=== PATIENT | female | born 1950 | race Caucasian/White ===

== ENCOUNTER 2018-07-19 12:38 | Outpatient (REF) | payer MEDICARE, SELFPAY ==
[2018-07-19 20:40] LABS: HCT 41.3 % (36.0-46.0); HGB 14.1 g/dL (12.0-15.5); Mean Corp. HGB Concentration 34.1 g/dL (32.0-36.0); Mean Corpuscular Hemoglobin 32.9 pg (27.0-33.0); Mean Corpuscular Volume 96.3 fL (80-95); Mean Platelet Volume 9.9 fL (8.0-11.0); Platelet Count 252 x1000/uL (130-400); RBC 4.29 m/cumm (4.00-5.20); RBC Distribution Width 13.8 % (11.7-14.6); White Blood Cell Count 6.97 k/cumm (4.4-10.8)
[2018-07-19 20:55] LABS: ALT 24 U/L (12-78); AST 14 U/L (15-37); Albumin 2.5 g/dL (3.4-5.0); Alkaline Phosphatase 99 U/L (46-116); Anion Gap 10.9 mmol/L (3-11); BUN 21 mg/dL (7-18); Bilirubin, Total 0.3 mg/dL (0.2-1.0); CO2 26.1 mmol/L (21.0-32.0); CREATININE 1.36 mg/dL (0.55-1.02); Calcium 9.2 mg/dL (8.5-10.1); Chloride 103 mmol/L (98-107); Estimated GFR 38.78 (mL/min/1.73m2); Glucose 95 mg/dL (70-100); Lipase 94 U/L (73-393); Sodium 140 mmol/L (136-145); Total Protein 6.7 g/dL (6.4-8.2)
== END 2018-07-19 12:58 ==
LOC: NCHCN 12:38
PROVIDERS: PCP Internal Medicine; Visit Provider Internal Medicine
DX: R11.0 Nausea (principal); R10.9 Unspecified abdominal pain
CPT/HCPCS: 80053; 83690; 85027

== ENCOUNTER 2018-08-21 13:48 | Outpatient (REF) | payer MEDICARE, SELFPAY ==
[2018-08-24 20:04] LABS: Metanephrines, U 86 mcg/24 h; Normetanephrine, U 491 mcg/24 h; Total Metanephrines, U 577 mcg/24 h; Urine Volume 1175 mL
[2018-08-25 14:07] LABS: Urine Volume 1175 mL
== END 2018-08-21 14:08 ==
LOC: NCHCN 13:48
PROVIDERS: PCP Internal Medicine; Visit Provider Internal Medicine
DX: E27.8 Other specified disorders of adrenal gland (principal)
CPT/HCPCS: 82533; 81050; 82384; 83835

== ENCOUNTER 2018-09-25 10:53 | Outpatient (REF) | payer MEDICARE, SELFPAY ==
[2018-09-25 13:08] LABS: HCT 43.7 % (36.0-46.0); HGB 14.5 g/dL (12.0-15.5); Mean Corp. HGB Concentration 33.2 g/dL (32.0-36.0); Mean Corpuscular Hemoglobin 32.5 pg (27.0-33.0); Mean Platelet Volume 10.1 fL (8.0-11.0); Platelet Count 239 x1000/uL (130-400); RBC 4.46 m/cumm (4.00-5.20); RBC Distribution Width 13.8 % (11.7-14.6); White Blood Cell Count 7.48 k/cumm (4.4-10.8)
[2018-09-25 13:26] LABS: Anion Gap 10.2 mmol/L (3-11); BUN 19 mg/dL (7-18); CO2 27.8 mmol/L (21.0-32.0); CREATININE 1.42 mg/dL (0.55-1.02); Calcium 8.8 mg/dL (8.5-10.1); Chloride 104 mmol/L (98-107); Ferritin 77 ng/mL (8-388); Glucose 114 mg/dL (70-100); Magnesium 1.9 mg/dL (1.8-2.4); Potassium 3.8 mmol/L (3.5-5.1); Sodium 142 mmol/L (136-145); TSH (W/Ref FT4) 1.13 uIU/mL (0.36-3.74)
== END 2018-09-25 11:13 ==
LOC: NCHCN 10:53
PROVIDERS: PCP Internal Medicine; Visit Provider Nurse Practitioner Family
DX: R25.2 Cramp and spasm (principal); N18.9 Chronic kidney disease, unspecified
CPT/HCPCS: 80048; 85027; 82728; 83735; 84443

== ENCOUNTER 2019-07-01 01:12 | Outpatient (CLI) | payer MEDICARE, SELFPAY ==
--- NOTE | 2019-07-01 | DI.RAD_ITS ---
EXAM: XR HIP LT COMPLETE AP PELVIS CLINICAL HISTORY: LT HIP PAIN, M25.552. TECHNIQUE: 2D digital imaging was performed. COMPARISON: No exams were available for comparison FINDINGS: BONES: No acute fracture is present. No bony destructive lesion is seen. JOINTS: There is moderate joint space narrowing in the left hip. There is a small osteophyte of the left femoral head. There is mild narrowing of the right hip joint. Mild degenerative changes are se en in the lower lumbar spine and the sacroiliac joints. SOFT TISSUE: Vascular calcifications are present. IMPRESSION: Mild to moderate degenerative changes of the left hip. DATA REPOSITORY: RADIATION DOSE DELIVERED:
== END 2019-07-01 01:32 ==
PROVIDERS: PCP Internal Medicine; Visit Provider Internal Medicine
DX: M25.552 Pain in left hip (principal); M16.12 Unilateral primary osteoarthritis, left hip
CPT/HCPCS: 73502

== ENCOUNTER → 2019-07-23 09:13 | Outpatient (BNVA) | payer MEDICARE, SELFPAY | PROVIDERS: PCP Internal Medicine; Referring Provider Internal Medicine; Visit Provider Orthopaedic Surgery | DX: M16.12 Unilateral primary osteoarthritis, left hip (principal) | CPT/HCPCS: 99203 ==

== ENCOUNTER 2019-08-15 13:00 | Outpatient (CLI) | payer MEDICARE, SELFPAY | END 2019-08-15 13:20 | PROVIDERS: PCP Internal Medicine; Visit Provider Orthopaedic Surgery | DX: Z01.818 Encounter for other preprocedural examination (principal); M16.12 Unilateral primary osteoarthritis, left hip; I10 Essential (primary) hypertension ==

== ENCOUNTER 2019-08-16 07:37 | Outpatient (CLI) | payer MEDICARE, SELFPAY ==
[2019-08-16 20:27] LABS: COVID-19 RT-PCR UVMMC Result Negative (Negative)
== END 2019-08-16 07:57 ==
PROVIDERS: PCP Internal Medicine; Visit Provider Orthopaedic Surgery
DX: Z01.818 Encounter for other preprocedural examination (principal); Z03.818 Encounter for observation for suspected exposure to other biological agents ruled out; M16.12 Unilateral primary osteoarthritis, left hip
CPT/HCPCS: U0003

== ENCOUNTER 2019-08-19 06:16 | Inpatient (IN) | payer MEDICARE, SELFPAY ==
[2019-08-19] VITALS (21 sets, daily range): BP systolic 107–135; BP diastolic 35–78; PULSE 54–79; RESP 18–30; TEMP 36.1–37.2; O2SAT 90–99
[2019-08-19] MEDS: Lactated Ringers 1,000 ML 80 ML IV (07:13)
[2019-08-19] MEDS: ceFAZolin 2 GM/50 ML BAG IVPB (07:37)
--- NOTE | 2019-08-19 08:15 | DI.RAD_ITS ---
EXAM: XR HIP LT IN OR CLINICAL HISTORY: DEGENERATIVE JOINT DISEASE OF LEFT HIP. TECHNIQUE: 2D digital imaging was performed. COMPARISON: CR XR HIP LT COMPLETE AP PELVIS from 07/01/2019 FINDINGS: Intraoperative image shows placement of components of a left hip prosthesis. DATA REPOSITORY: RADIATION DOSE DELIVERED:
[2019-08-19] MEDS: Hydrogen Peroxide 3% 480 ML BTL (08:34)
--- NOTE | 2019-08-19 10:34 | DI.RAD_ITS ---
EXAM: XR PELVIS AP CLINICAL HISTORY: check position of total hip components in RR TECHNIQUE: 2D digital imaging was performed. COMPARISON: No exams were available for comparison FINDINGS: Patient is status post placement of a left hip prosthesis. The components appear satisfactorily alig umesh.
[2019-08-19] MEDS: POTASSIUM CHLORIDE/0.9% NACL 1,000 ML 125 MEQ IV ×2 (12:01→20:43)
[2019-08-19] MEDS: ceFAZolin 1 GM/50 ML BAG IVPB ×2 (13:01→18:33)
--- NOTE | 2019-08-19 13:46 | NUR.NOTE ---
Pt arrived to med/surg alert and oriented but somewhat drowsy. pt vitals are stable, however pt is complaining of severe hip pain and requested pain med. Charge Nurse was consulted this RN is will give IV morphine 2mg and will reassess as it related to giving Fentanyl patc.
--- NOTE | 2019-08-19 14:18 | ROE_ITS ---
Date of service: 08/19/19 Time of Service: 14:19 Operative Note Operative Note DATE OF PROCEDURE: 08/19/19 PRE-OP DIAGNOSIS: Osteoarthritis left hip POST-OP DIAGNOSIS: same PROCEDURE: Left total hip replacement SURGEON: Amanuel Lira DIATHERMY EQUIPMENT REPAIRER: Dakotah Mcknight ANESTHESIA: GETA ESTIMATED BLOOD LOSS: 300 PATHOLOGY: none sent COMPLICATIONS: None Patient was transported to: PACU Patient's condition: stable Implants: Size 3 [place] stem, standard offset, 36+1.5 ceramic femoral head, 52 mm acetabular component, and 52 x 36 polyethylene liner. The components were press-fit. Indications: Is a 68-year-old white female with disabling left hip pain due to osteoarthritis. She began having fairly severe discomfort in October 2018. This pain is progressed to the winter. She has not had any relief from conservative treatments including intra-articular injection of her hip. Total hip replacement is recommended to alleviate her pain and hopefully restore some of her previous ambulatory abilities. The risk and complication of the procedure been explained patient detail preop. Procedure Description: Patient was taken the operating on 08/19/2019 she is placed supine operating table. After successful induction of a general anesthesia, she was turned to the left lateral position on the operating table. The position was maintained with pneumatic beanbag. Left hip was prepped and draped free in usual sterile fashion. Standard posterior lateral incision was made centered over the greater trochanter. Incision was carried down to the skin and subcu to the iliotibial band and gluteus fascia. Subcutaneous veins were cauterized. It is tibial band and gluteus fascia were were incised in line with the skin incision. Charnley self-retaining retractors were inserted. Trochanteric bursa was excised. Posterior capsulotomy was then used to expose the femoral head. A posterior capsular flap was developed to help with closure. Bone hook was used to lift the femoral head out dislocate the hip. Anterior capsulectomy was performed. Acetabular retractors were inserted. A 52 mm acetabular shell was then press-fit in appropriate position alignment. A good press-fit was obtained. The press-fit was then supplemented by one screw through the acetabular shell. Trial insert was then placed. Femoral canal was then serially reamed with straight reamers up to a size 3. Is then serially broached to a size 3 where there was felt to be a tight fit. Reduction with the trial components was very difficult because of too much length. And cut an additional 4 or 5 mm from the femoral neck. The trial using standard femoral neck and a +1.5 trial 36 mm head I was able to reduce femoral component into the acetabulum. The hip was quite stable to flexion 90 degrees - internal rotation of 80 degrees intraoperative AP x-rays of the left hip showed the limb lengths were fairly well equalized with a +1.5. I tried again with a +5 in was unable to reduce the femoral component. Femoral broach was removed. The acetabular trial was removed. The manhole cover was placed in the center hole in the acetabulum. The actual liner 52 x [address] with the impactor and mallet. The proximally YANEZ coated femoral component was then inserted in proper anteversion and fully seated using the star route mail driver and mallet. 2 g of tranexamic acid 100 cc of saline were instilled into the wound and allowed to stay in the wound for 60 seconds before suc tioning. The actual femoral head 36+1.5 mm was then placed on the neck of the stem and impacted in place with impactor mallet. Femoral component easily reduced into the acetabular component. Still demonstrated excellent stability to 90 degrees of flexion and 80 degrees of internal rotation in flexion. The left leg was abducted a [place] stand and closure was begun. The posterior capsular flaps have been developed was attached to the posterior edge of the greater trochanter with sutures of #2 FiberWire through drill holes in the greater trochanter. Piriformis tendon was attached to the abductor tendon at its insertion of the greater trochanter with a few interrupted #1 Vicryl sutures. Any bleeders were then cauterized at this point. The wound margins were infiltrated 0.5% Marcaine with epinephrine solution. Subcu was approximated interrupted 2-0 Vicryl sutures. Mepilex dressing was applied followed by gauze 4 x 4's tape with foam tape. Patient is experienced no intraoperative complications. Her anesthesia was reversed without complications. Estimated blood loss was 300 cc. She was discharged to recovery room in good condition.
[2019-08-19] MEDS: Acetaminophen 325 MG TAB 650 MG PO ×2 (14:27→19:59)
[2019-08-19] MEDS: fentaNYL 25 MCG PATCH TD (14:28)
[2019-08-19] MEDS: Docusate Sodium 100 MG CAP PO ×2 (14:28→19:25)
--- NOTE | 2019-08-19 15:42 | IN_ITS ---
Date of service: 08/19/19 Time of Service: 14:20 PT Notes Visit Reasons: TOTAL HIP Inpatient Physical Therapy Evaluation Date: 08/19/19 Referring Doctor: Dr. Lira PT Orders: PT CONSULT: get OOB ambulating in room this afternoon. WBAT LLE Precautions: posterior hip precautions Patient Profile/Admitting Diagnosis: Patient admitted post op day 0 after left posterior hip replacement. PMHX: Absent kidney, congenital (Acute) Anxiety and depression (Chronic) Cigarette smoker (Acute) 1/2-3/4 PPD Conversion disorder (Acute) Had left sided weakness in the that improved and slowly resolved after Amytal interview. History of depression and suicide attempt. Coronary arteriosclerosis (Acute) CVA (cerebral vascular accident) (Chronic) 13 years ago shortly after her LEFT TKA Eustachian tube disorder (Acute) Fecal incontinence (Acute) History of chest pain (Acute) Suspected [place] 2005 Hypercholesteremia (Acute) Hypertension (Chronic) IBS (irritable bowel syndrome) (Chronic) Lesion of eyelid (Acute) left upper eyelid Migraine (Chronic) history og migraines Neuropathy (Acute) Obesity (Chronic) ELVIN on CPAP (Chronic) Osteoarthritis (Chronic) Raynauds disease (Acute) Reactive airway disease (Acute) Renal insufficiency (Chronic) RLS (restless legs syndrome) (Acute) Senile hyperkeratosis (Acute) Stress incontinence (Acute) Stroke (Chronic) 2007, left sided weakness-resolved no deficits Varicose veins of both lower extremities (Acute) Social History/Home Situation: Patient lives independently with her , who is present at time of consult. She reports 6 WALKER with bilat rails. Has a 4WW at home, which she plans to use upon discharge. Equipment Owned/DME: 4WW Subjective: Cailin states that her pain remains very high. PT consult was attempted earlier today, with patient declining due to high pain levels. At this time, she is guarded, but states we can try. Objective: General Observation: Resting in bed with abduction pillow to LEs, Leyva catheter in place, and IV in LUE. She also has supplemental O2 via nasal cannula. Mental Status: A&Ox3 Pain: 7.5/10 ROM: Right Upper Extremity: WFL Left Upper Extremity: WFL Right Lower Extremity: WFL Left Lower Extremity: Not formally assessed due to post op status, although patient functionally demonstrates 85 degrees hip flexion, 15 degrees AB, knee flexion to 100 degrees or more. Strength: Right Upper Extremity: WFL Left Upper Extremity: WFL Right Lower Extremity: WFL Left Lower Extremity: Patient able to actively pump ankles and wiggle toes. She demonstrates effective quad set, and performs LAQ through partial range. Sensation: intact distally Bed Mobility/Transfers: supine-sit: min A with HOB at 30 degrees sit-supine: max A to LEs with HOB at 30 degrees Sit?stand: Mod assist Stand?sit: Mod assist Bed?chair: Mod assist with FW W Chair?bed: Mod assist with FW W Gait: Patient ambulates 6 feet with FW W, mod assist X1, WBAT. She requires max cues for technique. Balance: Static Sitting: Good Dynamic Sitting: Good Static Standing: Fair Dynamic Standing: Poor Special Tests: Mobility Limitations Standardized Measure [facility] AM-PAC 6 clicks Basic Mobility Inpatient Short Form: Raw Score: 12 CMS Score: 69% deficit Informed Consent/Education: Patient instructed in purpose of PT consult and plan of care. Patient was also educated in posterior hip precautions. She was provided with handouts and diagrams outlining to avoid. A great deal of time was spent in patient education for transfer technique, particularly with stand?sit and sit?supine transfers. Assessment: Patient is a 68 year old female referred to physical therapy services with the diagnosis of status post posterior left CRIS, postop day 0. Patient presents with clinical signs and symptoms consistent with diagnosis, as demonstrated by the following impairment level findings: 1. Decreased left lower extremity range of motion 2. Decreased functional strength left lower extremity 3. Decreased activity tolerance 4. Poorly controlled pain Impairments are contributing to the following functional limitations: 1. Decreased independence with bed mobility 2. Decreased independence with transfers 3. Unable to tolerate household distance ambulation 4. Unable to manage stairs Patient is assessed as Moderate [id number] complexity based on the following: History: 68-year-old female status post left CRIS, posterior approach, postop day 0. Patient has a complicated medical history, and demonstrates poorly controlled pain postoperatively. Examination: Functional limitations as noted above Presentation: Evolving Decision Making: Moderate complexity Goals: Goals X1 week 1. Supine-Sit : supervision 2. Sit-Supine: supervision 3. Sit-Stand : supervision 4. Stand-Sit: supervision 5. Bed-Chair : supervision with FW W 6. Chair-Bed : supervision with FW W 7. Gait : supervision with FW W x120 feet 8. Stairs : Patient able to a send and descend 6 steps with min assist and use of bilateral rails 9. Independent with home exercise program Plan of Care/Treatment Plan: 1-2x/day, 7 days/week x 1 week. Plan of care has been reviewed with the CHARGE AUTHORIZER providing the service under Physical Therapy direction. Initiate Physical Therapy intervention for strengthening, bed mobility, transfers, gait, stairs, balance training, use of assistive device. DISCHARGE RECOMMENDATIONS: Home with home health versus outpatient PT TREATMENT CODE/TIME: 50 minutes (220?3:00, 3:20-3:30) [id number], [id number] Claribel Sidhu, PT, DPT [facility]
[2019-08-19] MEDS: Ketorolac 30 MG/ML VIAL IVP ×2 (15:50→19:25)
[2019-08-19] MEDS: Nicotine 21 MG/24 HR PATCH TD (18:32)
[2019-08-19] MEDS: HYDROmorphone 4 MG TAB PO (20:00)
[2019-08-19] MEDS: Gabapentin 600 MG TAB PO (22:21)
[2019-08-19] MEDS: traZODone 50 MG TAB PO (22:21)
[2019-08-19] MEDS: clonazePAM 1 MG TAB PO (22:21)
[2019-08-19] MEDS: Losartan 50 MG TAB 100 MG PO (22:22)
[2019-08-20] VITALS (7 sets, daily range): BP systolic 102–119; BP diastolic 57–69; PULSE 48–77; RESP 18–20; TEMP 36.4–36.7; O2SAT 90–96
[2019-08-20] MEDS: ceFAZolin 1 GM/50 ML BAG IVPB ×3 (01:00→12:21)
[2019-08-20] MEDS: HYDROmorphone 4 MG TAB PO ×2 (01:20→12:20)
[2019-08-20] MEDS: Ketorolac 30 MG/ML VIAL IVP ×3 (01:22→14:11)
[2019-08-20] MEDS: POTASSIUM CHLORIDE/0.9% NACL 1,000 ML 125 MEQ IV (04:26)
[2019-08-20 07:06] LABS: HCT 28.8 % (36.0-46.0); HGB 9.6 g/dL (12.0-15.5); Mean Corp. HGB Concentration 33.3 g/dL (32.0-36.0); Mean Corpuscular Hemoglobin 32.3 pg (27.0-33.0); Mean Platelet Volume 9.4 fL (8.0-11.0); Platelet Count 171 x1000/uL (130-400); RBC 2.97 m/cumm (4.00-5.20); RBC Distribution Width 13.6 % (11.7-14.6); White Blood Cell Count 7.47 k/cumm (4.4-10.8)
[2019-08-20] MEDS: Aspirin E.C. 81 MG TABEC PO (08:14)
[2019-08-20] MEDS: Atorvastatin 40 MG TAB 80 MG PO (08:14)
[2019-08-20] MEDS: Multivitamin w/Minerals TAB 1 TAB PO (08:14)
[2019-08-20] MEDS: Pantoprazole 40 MG TABCR PO (08:16)
[2019-08-20] MEDS: Furosemide 40 MG TAB PO (08:16)
[2019-08-20] MEDS: Nicotine 21 MG/24 HR PATCH TD (08:17)
[2019-08-20] MEDS: Docusate Sodium 100 MG CAP PO ×2 (08:17→14:11)
[2019-08-20] MEDS: Acetaminophen 325 MG TAB 650 MG PO ×2 (08:29→12:20)
[2019-08-20] MEDS: Normal Saline Flush 10 ML SYR IV ×2 (08:33→14:13)
--- NOTE | 2019-08-20 09:08 | INITIAL_ITS ---
- If Service Date Differs Date of service: 08/20/19 Time of Service: 09:08 Care Management Initial Assess REASON FOR HOSPITALIZATION:: total hip PAST MEDICAL HISTORY/PAST SURGICAL HISTORY:: Medical History. Absent kidney, congenital (Acute). Anxiety and depression (Chronic). Cigarette smoker (Acute). 1/2-3/4 PPD. Conversion disorder (Acute). Had left sided weakness in the that improved and slowly resolved after Amytal interview. History of depression and suicide attempt. Coronary arteriosclerosis (Acute). CVA (cerebral vascular accident) (Chronic). 13 years ago shortly after her LEFT TKA. Eustachian tube disorder (Acute). Fecal incontinence (Acute). History of chest pain (Acute). Suspected [place] 2005. Hypercholesteremia (Acute). Hypertension (Chronic). IBS (irritable bowel syndrome) (Chronic). Lesion of eyelid (Acute). left upper eyelid. Migraine (Chronic). history og migraines. Neuropathy (Acute). Obesity (Chronic). ELVIN on CPAP (Chronic). Pt. 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 she will cough a lot. Osteoarthritis (Chronic). Raynauds disease (Acute). Reactive airway disease (Acute). Renal insufficiency (Chronic). RLS (restless legs syndrome) (Acute). Senile hyperkeratosis (Acute). Stress incontinence (Acute). Stroke (Chronic). 2007, left sided weakness-resolved no deficits. Varicose veins of both lower extremities (Acute). Surgical History (Updated 08/17/19 @ 08:40 by PIPPA Whitman). History of carpal tunnel release (Acute). History of cholecystectomy (Chronic). History of hysterectomy (Chronic). History of knee replacement (Chronic). bilateral PREVIOUS FUNCTIONAL STATUS/SOCIAL/FAMILY SUPPORTS:: Cailin lives in a single family home in [place], [place]. with her William. Cailin has 2 children from a previous marriage, as does William. Cailin is independent at baseline. She has a walker at home but uses it only when her hip was more painful than usual. CURRENT FUNCTIONAL STATUS:: Cailin was sitting up in bed chatting with her when CM visited. She was smiling and stated that she is doing very well. She shared that she worked with PT this morning and was able to walk and do stairs. She expressed a desire to go home today and does not feel she will need any services. She has a walker and a commode at home and has arranged the bedroom in such a way that it will enable her to get in and out of the bathroom easliy. ADVANCE DIRECTIVES:: None on file Has patient been provided with info about the portal/API?: Yes Did the patient sign up for the portal?: No CODE STATUS:: Full Code INSURANCE COVERAGE / FINANCIAL ISSUES:: Medicare. [facility] CURRENT HOME/COMMUNITY SERVICES/EQUIPMENT:: walker and commode PRIMARY CARE PHYSICIAN:: Edson Hubbard POTENTIAL DISCHARGE NEEDS:: Follow up with surgeon and PCP PATIENT/FAMILY EDUCATION NEEDS:: Discharge plan, limitations, follow up plan, Ask Me Three TRANSPORTATION:: via private vehicle with PLAN:: Cailin will be discharged home with no new services. She will follow up with her PCP and discharge plan of care and transport via private vehicle with her .
[2019-08-20] MEDS: Enoxaparin 30 MG/0.3 ML SYR SC (10:12)
--- NOTE | 2019-08-20 10:30 | PTTR_ITS ---
Date of service: 08/20/19 Time of Service: 10:30 PT Notes Visit Reasons: POST-OP L TOTAL HIP Inpatient Physical Therapy Treatment Note [facility] Date: 08/20/19 PRECAUTIONS: Fall, Posterior CRIS Prec SUBJECTIVE: Cailin is agreeable to participating in PT. OBJECTIVE: PAIN: Pt rates her L hip pain as 4/10 prior to starting PT, then as 6/10 post PT session. BED MOBILITY/TRANSFERS Supine-sit: SBA with HOB flat and use of leg artificial insemination technician Sit-supine: SBA with HOB flat and use of leg artificial insemination technician Sit-stand: SBA with cueing for safety Stand-sit: SBA GAIT Assistive Device: FWW Weight bearing: WBAT L Assist: SBA Distance: 30' +40' in a.m.; 50' +30' in p.m. Deviation: Slow pace, step to gait pattern in a.m., step through gait pattern in p.m. THEREX: Patient completed a lower extremity strengthening and stabilization program, in a supine position, as per flow sheet. Patient ends with ice pack to L hip. STAIRS: Up/down 3?4 and 2?6 using B rails and a step to pattern with CGA in a.m.; up/down 3?4 and 2?6 using one rail/U axillary crutch and a step to pattern with CGA in p.m. Patient requested to attempt stair negotiation using one rail and navigating the stairs sideways. She was able to perform this task, although required Min A x2, and did not appear as stable or safe using this method. This method and was discouraged by PT staff. ASSESSMENT: Patient tolerated session well, with complaints of increased pain with activity. She was able to tolerate a progression in gait distance with FWW support and SBA. Patient would benefit from continued gait and transfer training as well as lower extremity strengthening for improved mobility. PLAN: Continue with PT's POC TREATMENT CODE/TIME: Session 1: 45 minutes; [id number] x2, [id number] Session 2: 30 minutes; [id number], [id number]
--- NOTE | 2019-08-20 13:20 | W.PM.DS.N ---
Date of service: 08/20/19 Time of Service: 13:20 Discharge Plan Disposition Patient Disposition: HOME Condition: Good Discharge Details Reason For Visit: L TOTAL HIP REPLACEMENT Admit Date/Time: 08/19/19 06:16 Admit Provider: Amanuel Lira Attending Provider: Amanuel Lira Primary Care Provider: Edson Hubbard Hospital Course Hospital Course: Patient was taken the abdomen on the day of admission 08/19/2019 where she underwent a left total hip arthroplasty without complications. Her Leyva catheter was discontinued on first postop day. Hemoglobin was 9.6 g on postop day #1. She was afebrile and her vital signs are stable. She was independent with transfers. She was able to ambulate down the go and go up and down stairs in physical therapy twice. She was taking only p.o. pain meds. It was felt that she had completed her acute care goals and was ready for home discharge. Home Meds and New Rx's Prescriptions: New celecoxib [Celebrex] 200 mg capsule 200 mg PO BID Qty: 60 RF: 0 hydromorphone [Dilaudid] 4 mg tablet 4 mg PO Q6H PRN (Reason: pain) Qty: 14 RF: 0 Continued amlodipine 10 mg tablet 10 mg PO DAILY RF: 0 atorvastatin 80 MG tablet 80 mg PO DAILY RF: 0 gabapentin 600 MG tablet 600 mg PO HS RF: 0 clonazepam 1 MG tablet 1 mg PO HS RF: 0 furosemide 40 MG/4 ML solution 40 mg PO DAILY RF: 0 pantoprazole 20 MG tablet,delayed release (DR/EC) 40 mg PO DAILY Qty: 60 RF: 1 ipratropium-albuterol 3 ML solution for nebulization 1 inh PO QID RF: 0 acetaminophen-codeine [Tylenol-Codeine #3] 1 TAB tablet 1 - 2 tab PO TID PRNRF: 0 aspirin [Aspirin Low Dose] 81 MG tablet,delayed release (DR/EC) 1 tab PO DAILY RF: 0 nitroglycerin [Nitrostat] 0.4 MG tablet, sublingual 1 tab Sublingual PRN PRNRF: 0 Flovent HFA 120 PUFF HFA aerosol inhaler 2 puff Inhalation BID RF: 0 albuterol sulfate 8.5 GM HFA aerosol inhaler 1 puff Inhalation .PRN Q 6 RF: 0 losartan 100 MG tablet 100 mg PO HS RF: 0 Anoro Ellipta 62.5-25 mcg/actuation blister with device 1 inh INHALATION DAILY RF: 0 trazodone 50 mg Tablet 50 mg PO QHS RF: 0 Discharge Instructions Additional Instructions: Elevate L leg when sitting. Follow total hip precautions on L for 6 weeks. Apply ice to incision L hip 4 times/day for 1 hour each time to decrease pain and swelling. May shower and get dressing wet on . Don't take off dressing. Let it come off by itself or we will take it off when you return. Return to 's office in 2 weeks. Wear elastic stockings only during daytime for next 2 weeks. Take one baby aspirin(81 mg) twice/day for 30 days, to prevent blood clots in legs. Take celebrex twice/day as prescribed, to decrease inflammation and swelling. Take dilaudid for breakthru pain, if needed. You may take tylenol with codeine #3 instead, if you prefer. Walk every day as much as your discomfort allows. Use walker, crutches or cane, as long as you limp. Referrals: Amanuel Lira MD [ [facility] STAFF PHYSICIAN] - (f/u in 2 weeks.) Activity:: Activity as Tolerated Equipment/Supplies:: Walker Diet:: As Tolerated Discharge Orders Discharge Orders: Discharge Order (Routine); Ordered 08/20/19 Ordered By: Amanuel Lira DS: Summary Status at Discharge Functional status at discharge: uses cane/walker Overall status at discharge: patient is not back to baseline Mental Status: mental status grossly normal Speech and Movement: speech and movement normal Mood: congruent mood Affect: normal affect Exam Psych Mental Status: mental status grossly normal Speech and Movement: speech and movement normal Mood: congruent mood Affect: normal affect DS: Data Vitals/I&O Vitals and I&O: Vital Signs Temperature 36.7 C 08/20/19 12:08 Temperature Source Tympanic 08/20/19 12:08 Pulse 77 08/20/19 12:08 Pulse Rhythm Regular 08/20/19 08:00 Respiratory Rate 18 08/20/19 12:08 Respiratory Effort 08/20/19 08:00 Respiratory Depth Normal 08/20/19 08:00 Respiratory Pattern Normal 08/20/19 08:00 Blood Pressure 119/57 L 08/20/19 12:08 Pulse Oximetry 94 L 08/20/19 12:08 Respiratory End-tidal CO2 39 08/19/19 10:57 Oxygen Delivery Method Room Air 08/20/19 12:08 Oxygen Flow Rate 0 08/20/19 12:08 Fraction of Inspired Oxygen (FIO2) 21 08/20/19 12:05 Pain Level 8 08/20/19 12:20 Comment 08/19/19 11:15 Intake & Output 08/19/19 08/20/19 08/20/19 23:59 11:59 23:59 Intake Total 1340 / 2090 1846.250 / 2086.250 240 / 2086.250 Output Total 300 / 675 525 / 525 Balance 1040 / 1415 1321.250 / 1561.250 240 / 1561.250 Intake: IV 1100 / 1850 1256.250 / 1256.250 Oral 240 / 240 590 / 830 240 / 830 Output: Urine 300 / 375 525 / 525 Other: Urine Color Yellow Yellow Urine Appearance Clear Clear Data Completed and Pending Labs on day of discharge: Labs from last 24 hours 08/20/19 06:30 WBC 7.47 RBC 2.97 L Hgb 9.6 L Hct 28.8 L MCV 97.0 H MCH 32.3 MCHC 33.3 RDW 13.6 Plt Count 171 MPV 9.4 PFSH Medical History Absent kidney, congenital (Acute) Anxiety and depression (Chronic) Cigarette smoker (Acute) 1/2-3/4 PPD Conversion disorder (Acute) Had left sided weakness in the that improved and slowly resolved after Amytal interview. History of depression and suicide attempt. Coronary arteriosclerosis (Acute) CVA (cerebral vascular accident) (Chronic) 13 years ago shortly after her LEFT TKA Eustachian tube disorder (Acute) Fecal incontinence (Acute) History of chest pain (Acute) Suspected [place] 2006 Hypercholesteremia (Acute) Hypertension (Chronic) IBS (irritable bowel syndrome) (Chronic) Lesion of eyelid (Acute) left upper eyelid Migraine (Chronic) history og migraines Neuropathy (Acute) Obesity (Chronic) ELVIN on CPAP (Chronic) Pt. 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 she will cough a lot Osteoarthritis (Chronic) Raynauds disease (Acute) Reactive airway disease (Acute) Renal insufficiency (Chronic) RLS (restless legs syndrome) (Acute) Senile hyperkeratosis (Acute) Stress incontinence (Acute) Stroke (Chronic) 2008, left sided weakness-resolved no deficits Varicose veins of both lower extremities (Acute) Surgical History (Updated 08/19/19 @ 06:58 by Lila Sierra RN) History of appendectomy (Chronic) History of carpal tunnel release (Acute) History of cholecystectomy (Chronic) History of hysterectomy (Chronic) History of knee replacement (Chronic) bilateral Social History (Updated 08/17/19 @ 08:42 by PIPPA Whitman) Smoking/Tobacco Use Status: Current every day Tobacco: How many years used: 60 Quit status: not considering quitting Counseling given: counseling >3 minutes Alcohol Intake: former Drug use: Never
--- NOTE | 2019-08-20 15:50 | PDOC.CMDIS ---
- If Service Date Differs Date of service: 08/20/19 Time of Service: 15:50 LACE Index Scoring Tool - Questions: Length of Stay (in days): 1 Acuity (Admit via E.D.?): No Comorbidities: Previous M.I., Cerebrovascular Disease E.D. Visits: 0 - Answers: Total Score: 3 Risk of Readmission: Low Risk Care Management Discharge Reason for Hospitalization: total hip Discharge Plan: Cailin will be discharged home with no new services. She will follow up with her PCP and discharge plan of care and transport via private vehicle with her . Patient/Family Education Needs: Discharge plan, limitations, follow up plan, Ask Me Three
--- NOTE | 2019-08-20 16:45 | PT.INDS ---
Date of service: 08/20/19 Time of Service: 16:46 PT Notes Visit Reasons: L TOTAL HIP REPLACEMENT Date: 08/20/19 Treatment Dates: 08/19/19 - 08/20/19 Treatment Sessions: 3 Referring Doctor: Dr. Lira PT Orders: PT CONSULT: get OOB ambulating in room this afternoon. WBAT LLE Precautions: posterior hip precautions THIS DOCUMENT SERVES A SUMMARY OF CARE. NO PT SERVICES WERE PROVIDED AT TIME OF THIS DOCUMENTATION. Patient Profile/Admitting Diagnosis: Patient admitted s/p left posterior hip replacement.She participated in 3 sessions of PT over a period of 2 days. PMHX: Absent kidney, congenital (Acute) Anxiety and depression (Chronic) Cigarette smoker (Acute) 02/14-04/16 PPD Conversion disorder (Acute) Had left sided weakness in the that improved and slowly resolved after Amytal interview. History of depression and suicide attempt. Coronary arteriosclerosis (Acute) CVA (cerebral vascular accident) (Chronic) 13 years ago shortly after her LEFT TKA Eustachian tube disorder (Acute) Fecal incontinence (Acute) History of chest pain (Acute) Suspected MA 2006 Hypercholesteremia (Acute) Hypertension (Chronic) IBS (irritable bowel syndrome) (Chronic) Lesion of eyelid (Acute) left upper eyelid Migraine (Chronic) history og migraines Neuropathy (Acute) Obesity (Chronic) ELVIN on CPAP (Chronic) Osteoarthritis (Chronic) Raynauds disease (Acute) Reactive airway disease (Acute) Renal insufficiency (Chronic) RLS (restless legs syndrome) (Acute) Senile hyperkeratosis (Acute) Stress incontinence (Acute) Stroke (Chronic) 2007, left sided weakness-resolved no deficits Varicose veins of both lower extremities (Acute) Social History/Home Situation: Patient lives independently with her . She reports 6 WALKER with bilat rails. Has a 4WW at home, which she plans to use upon discharge. Equipment Owned/DME: 4WW Subjective: Patient discharged home earlier today. Objective: ROM: Right Upper Extremity: WFL Left Upper Extremity: WFL Right Lower Extremity: WFL Left Lower Extremity: Not formally assessed due to post op status, although patient functionally demonstrates 85 degrees hip flexion, 15 degrees AB, knee flexion to 100 degrees or more. Strength: Right Upper Extremity: WFL Left Upper Extremity: WFL Right Lower Extremity: WFL Left Lower Extremity: Patient able to actively pump ankles and wiggle toes. She demonstrates effective quad set, and performs LAQ through partial range. Sensation: intact distally Bed Mobility/Transfers: supine-sit: SBA with HOB flat sit-supine: SBA with HOB flat Sit?stand: SBA Stand?sit: SBA Bed?chair: SBA with FWW Chair?bed: SBA with FWW Gait: Patient demonstrated ability to ambulate up to 50' feet with FW W, SBA, WBAT. Stairs: Patient received stair training with single rail and single axillary crutch (which she has at home). She managed therapeutic stairs with CGA, ascending and descending 4 stairs x 3, 6 stairs x 2. Balance: Static Sitting: Good Dynamic Sitting: Good Static Standing: Fair Dynamic Standing: Poor Assessment: Patient is a 68 year old female referred to physical therapy services with the diagnosis of status post posterior left CRIS. She participated in 3 sessions of PT intervention over the course of 2 days, and demonstrated effective safety and independence to allow for safe transition back home. Goals: Goals X1 week 1. Supine-Sit : supervision (met) 2. Sit-Supine: supervision(met) 3. Sit-Stand : supervision(met) 4. Stand-Sit: supervision(met) 5. Bed-Chair : supervision with FW W(met) 6. Chair-Bed : supervision with FW W(met) 7. Gait : supervision with FW W x120 feet (progressing toward, with patient able to demonstrate safe household distances) 8. Stairs : Patient able to ascend and descend 6 steps with min assist and use of bilateral rails (met) 9. Independent with home exercise program(met) Plan of Care/Treatment Plan: D/C home DISCHARGE RECOMMENDATIONS: no equipment needs TREATMENT CODE/TIME: none Claribel Sidhu, PT, DPT [facility]
[2019-08-30] MEDS: Normal Saline Flush 10 ML SYR IV (19:52)
== END 2019-08-20 15:02 | disposition home or self-care (01) | DRG 470 ==
LOC: PDS 06:16 → MS 10:42
PROVIDERS: Admitting Provider Orthopaedic Surgery; PCP Internal Medicine; Visit Provider Orthopaedic Surgery
PROC: 0SRB04A Replacement of Left Hip Joint with Ceramic on Polyethylene Synthetic Substitute, Uncemented, Open Approach (ICD-10-PCS; CPT 27130; principal; 2019-08-19 07:30)
DX: M16.12 Unilateral primary osteoarthritis, left hip (principal); M25.552 Pain in left hip; Z96.642 Presence of left artificial hip joint; Z96.652 Presence of left artificial knee joint; I10 Essential (primary) hypertension; G47.33 Obstructive sleep apnea (adult) (pediatric); G25.81 Restless legs syndrome; Z86.73 Personal history of transient ischemic attack (TIA), and cerebral infarction without residual deficits; F17.210 Nicotine dependence, cigarettes, uncomplicated; F41.8 Other specified anxiety disorders
CPT/HCPCS: 27130; 36415; 85027; 97110; 97162; 97530; NC; 72170; 73501; J0690; J1100; J1650; J1885; J2001; J2250; J2405; J2704; L1686

== ENCOUNTER 2019-08-22 18:40 | Emergency (ER) | payer MEDICARE, SELFPAY ==
[2019-08-22 18:47] VITALS: BP 159/66; PULSE 68; TEMP 37.1; O2SAT 96
--- NOTE | 2019-08-22 19:02 | ED.GENADUL_ITS ---
Discharge Plan Disposition Patient Disposition: HOME Condition: Stable Discharge Details Chief Complaint: Orthopedic Clinical Impression: Postoperative bleeding from incision Primary Care Provider: Edson Hubbard ED Provider: Kimberly Lay Home Meds and New Rx's Prescriptions: Continued amlodipine 10 mg tablet 10 mg PO DAILY RF: 0 atorvastatin 80 MG tablet 80 mg PO DAILY RF: 0 gabapentin 600 MG tablet 600 mg PO HS RF: 0 clonazepam 1 MG tablet 1 mg PO HS RF: 0 furosemide 40 MG/4 ML solution 40 mg PO DAILY RF: 0 pantoprazole 20 MG tablet,delayed release (DR/EC) 40 mg PO DAILY Qty: 60 RF: 1 ipratropium-albuterol 3 ML solution for nebulization 1 inh PO QID RF: 0 acetaminophen-codeine [Tylenol-Codeine #3] 1 TAB tablet 1 - 2 tab PO TID PRNRF: 0 nitroglycerin [Nitrostat] 0.4 MG tablet, sublingual 1 tab Sublingual PRN PRNRF: 0 Flovent HFA 120 PUFF HFA aerosol inhaler 2 puff Inhalation BID RF: 0 albuterol sulfate 8.5 GM HFA aerosol inhaler 1 puff Inhalation .PRN Q 6 RF: 0 losartan 100 MG tablet 100 mg PO HS RF: 0 Anoro Ellipta 62.5-25 mcg/actuation blister with device 1 inh INHALATION DAILY RF: 0 trazodone 50 mg Tablet 50 mg PO QHS RF: 0 celecoxib [Celebrex] 200 mg capsule 200 mg PO BID Qty: 60 RF: 0 hydromorphone [Dilaudid] 4 mg tablet 4 mg PO Q6H PRN (Reason: pain) Qty: 14 RF: 0 No Action aspirin [Aspirin Low Dose] 81 MG tablet,delayed release (DR/EC) 1 tab PO DAILY RF: 0 Discharge Instructions Instructions: Wound Healing and Your Diet (ED), Steristrips (ED) Additional Instructions: Do not restart your aspirin until Monday morning. If there is any more oozing from the incision at all call the Ortho clinic in the morning to be seen tomorrow before noon. You may reinforce dressings as discussed with ABD pads. If severe bleeding reoccurs please be seen at the closest emergency room or return here to [facility] ED. Return immediately to be seen in ER if any fever, worsening swelling or bleeding. Referrals: Amanuel Lira MD [ [facility] STAFF PHYSICIAN] - (call tomorrow before noon if needed) Medical Decision Making 60-year-old female presents to the ED status post 48 hours from left hip replacement surgery. Patient reports that she began bleeding through her postop dressing at approximately 10:30 AM this morning. Her and her reinforce the dressing with 2 ABD pads. Upon initial exam there is small amount of bleeding noted through to the ABD pads. The postop surgical sponge which is on with a Tegaderm dressing is mostly saturated through with blood. Associated symptoms include nausea but patient did take her Celebrex and hydromorphone medications at approximately 5:00 on an empty stomach. She denies fever or falls. She did have increased activity today and reports increased walking. She does take a baby aspirin daily. She denies any other symptoms or complaints at this time. 191: Dressings removed, approximate 20 cm of incision noted. There are 2 small areas that are mildly oozing with serosanguineous drainage. Wound edges were cleaned carefully with chlorhexidine, surgical incision reinforced with 6 Steri- Strips, 2 Mediplex absorbent dressings applied to surgical incision using sterile technique. Will observe patient and perform road test to see for any additional breakthrough bleeding or soaking through dressing. Patient does have an orthopedic follow-up in [address] Lira. 192: Patient was up with assistance with nursing staff took a few steps placed back in bed. Will recheck incision for any increased bleeding or problems in 10 minutes. 1935: Reassessed patient's incision and dressing, no further breakthrough bleeding noted. 193: Spoke with Dr. Rodriguez who is on-call for Ortho, discussed patient case and details, he recommends giving patient some 4 x 4's and some paper tape having her stop the aspirin nightly dose and tomorrow and may return to resume aspirin as prescribed on Monday if no recurrent bleeding. He also recommends calling the office to be seen in the morning first thing in tomorrow if any concerns they will evaluate if there is any more blood oozing at all and re-dress it. Will discuss plan with patient and at this time I feel like this is reasonable plan. Discussed plan in conversation with Dr. Rodriguez with patient, verbalized understanding to stop aspirin tomorrow and restarted on Monday. Discussed if there is any oozing at all to make an appointment with [facility] orthopedics, verbalized understanding. Discussed that if there is any severe bleeding patient will go to the nearest ER to be seen or back to this ER. Patient discharged with was alert and oriented and hemodynamically stable throughout stay. HPI General Mode of arrival: wheelchair . Date/Time Provider Initiated Documentation: 08/22/19 18:41 . Limitations to Documentation: no limitations . Information obtained by: patient . HPI Narrative: 60-year-old female presents to the ED status post 48 hours from left hip replacement surgery. Patient reports that she began bleeding through her postop dressing at approximately 10:30 AM this morning. Her and her reinforce the dressing with 2 ABD pads. Upon initial exam there is small amount of bleeding noted through to the ABD pads. The postop surgical sponge which is on with a Tegaderm dressing is mostly saturated through with blood. Associated symptoms include nausea but patient did take her Celebrex and hydromorphone medications at approximately 5:00 on an empty stomach. She denies fever or falls. She did have increased activity today and reports increased walking. She does take a baby aspirin daily. She denies any other symptoms or complaints at this time. Related Data Home Medications Medication Instructions Recorded Confirmed Flovent HFA 2 puff INHALATION BID 04/30/14 08/22/19 acetaminophen-codeine 1 - 2 tab PO TID PRN 04/30/14 08/22/19 [Tylenol-Codeine #3] albuterol sulfate 1 puff INHALATION .PRN Q 6 04/30/14 08/22/19 aspirin [Aspirin Low Dose] 1 tab PO DAILY 04/30/14 08/22/19 ipratropium-albuterol 1 inh PO QID 04/30/14 08/22/19 losartan 100 mg PO HS 04/30/14 08/22/19 nitroglycerin [Nitrostat] 1 tab SUBLINGUAL PRN PRN 04/30/14 08/22/19 atorvastatin 80 mg PO DAILY tab-cap 03/16/15 08/22/19 clonazepam 1 mg PO HS 03/16/15 08/22/19 furosemide 40 mg PO DAILY ml 03/16/15 08/22/19 gabapentin 600 mg PO HS 03/16/15 08/22/19 pantoprazole 40 mg PO DAILY #60 tab-cap 03/16/15 08/22/19 amlodipine 10 mg tablet 10 mg PO DAILY 07/23/19 08/22/19 Anoro Ellipta 1 inh INHALATION DAILY 08/14/19 08/22/19 trazodone 50 mg PO QHS 08/19/19 08/22/19 celecoxib [Celebrex] 200 mg PO BID #60 cap 08/20/19 08/22/19 hydromorphone [Dilaudid] 4 mg PO Q6H PRN #14 tab 08/20/19 08/22/19 Previous Rx's Medication Instructions Recorded celecoxib [Celebrex] 200 mg PO BID #60 cap 08/20/19 hydromorphone [Dilaudid] 4 mg PO Q6H PRN #14 tab 08/20/19 Allergies Allergy/AdvReac Type Severity Reaction Status Date / Time prochlorperazine edisylate Allergy Intermediate Unverified 08/22/19 18:52 [From Compazine] prochlorperazine maleate Allergy Intermediate Unverified 08/22/19 18:52 [From Compazine] acetaminophen [From Percocet] AdvReac Mild Verified 08/22/19 18:52 atenolol AdvReac Mild Verified 08/22/19 18:52 hydrochlorothiazide AdvReac Mild Verified 08/22/19 18:52 hydrocodone [From Vicodin] AdvReac Mild Verified 08/22/19 18:52 lisinopril AdvReac Mild Verified 08/22/19 18:52 oxycodone [From Percocet] AdvReac Mild Verified 08/22/19 18:52 General Stated Complaint: Orthopedic GWYN: 3 Review of Systems Narrative: Constitutional: Negative for weight loss, alert and oriented, well groomed, normal body habitus, appears comfortable. HEENT: Denies trauma, headaches, blurry vision, nasal discharge, sore throat, trouble swallowing. Chest: Denies chest pain, palpitations, irregular rhythm, hypertension. Respiratory: Denies Shortness of breath, cough, hemoptysis. GI: Denies abdominal pain, vomiting, diarrhea, constipation. Reports nausea. : Denies dysuria, hematuria, flank pain, rectal bleeding. Extremities: History of left hip replacement surgery 2 days ago, there is an inc ision noted, mild swelling with ecchymosis Neuro: Denies dizziness, blurry vision, weakness, syncope, headache or facial numbness. Hematologic: Reports increased bleeding from left hip surgical incision which began at 1030 this morning. [facility] Medical History Absent kidney, congenital (Acute) Anxiety and depression (Chronic) Cigarette smoker (Acute) 1/2-3/4 PPD Conversion disorder (Acute) Had left sided weakness in the that improved and slowly resolved after Amytal interview. History of depression and suicide attempt. Coronary arteriosclerosis (Acute) CVA (cerebral vascular accident) (Chronic) 13 years ago shortly after her LEFT TKA Eustachian tube disorder (Acute) Fecal incontinence (Acute) History of chest pain (Acute) Suspected HI 2006 Hypercholesteremia (Acute) Hypertension (Chronic) IBS (irritable bowel syndrome) (Chronic) Lesion of eyelid (Acute) left upper eyelid Migraine (Chronic) history og migraines Neuropathy (Acute) Obesity (Chronic) ELVIN on CPAP (Chronic) Pt. 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 she will cough a lot Osteoarthritis (Chronic) Raynauds disease (Acute) Reactive airway disease (Acute) Renal insufficiency (Chronic) RLS (restless legs syndrome) (Acute) Senile hyperkeratosis (Acute) Stress incontinence (Acute) Stroke (Chronic) 2007, left sided weakness-resolved no deficits Varicose veins of both lower extremities (Acute) Surgical History History of appendectomy (Chronic) History of carpal tunnel release (Acute) History of cholecystectomy (Chronic) History of hysterectomy (Chronic) History of knee replacement (Chronic) bilateral Family History Other Cancer Diabetes Glaucoma Heart disease Hypertension Social History Smoking/Tobacco Use Status: Current every day Tobacco Type: cigarettes Tobacco: How many years used: 60 Quit status: not considering quitting Counseling given: counseling >3 minutes Alcohol Intake: former Drug use: Never Do you feel safe at home: Yes Do you feel safe in your relationship?: Yes Exam Narrative Exam Narrative: Constitutional: Alert and oriented x3. Appears stated age. Normal body habitus. Head: Normocephalic, no trauma. Eyes: Pupils PERRLA, Red reflex noted, EOM's intact. Eyelids symmetrical without lesions, discharge, or swelling. ENT: Bilateral TM's WNL, External ear normal to inspection, no mastoid TTP, swelling, or erythema, Nasal turbinates WNL, no nasal discharge. Normal dentition, Posterior pharynx WNL, no exudate. Chest: RRR, Normal S1, S2, distal pulses intact. Resp: Lungs clear to auscultation bilaterally, no wheezes, rales, or rhonchi. Musculoskeletal: Left surgical incision noted over the lateral aspect of her left hip, dressing removed noted surgical sponge saturated with blood. There is surrounding ecchymosis and mild to moderate swelling no erythema or signs of infection at this time. Wound is well approximated. There are 2 areas that are mildly oozing. Distal dorsal pedal pulses intact she is wearing HAMZAH hose. Skin: No suspicious rashes or lesions. Capillary refill less than 2 sec. Neurologic: Cranial nerves II-XII intact. Alert and oriented x 3. Hematologic/Lymphatic: No ecchymosis, no lymphadenopathy. Course Vital Signs Vital signs: Vital Signs Temperature 37.1 C 08/22/19 18:47 Pulse 68 08/22/19 18:47 Blood Pressure 159/66 H 08/22/19 18:47 Pulse Oximetry 96 08/22/19 18:47 Temperature 37.1 C 08/22/19 18:47 Temperature Source Temporal Artery Scan 08/22/19 18:47 Pulse 68 08/22/19 18:47 Blood Pressure 159/66 H 08/22/19 18:47 Blood Pressure Position Sitting 08/22/19 18:47 Pulse Oximetry 96 08/22/19 18:47 Oxygen Delivery Method Room Air 08/22/19 18:47 Oxygen Flow Rate 0 08/22/19 18:47 Pain Level 10 08/22/19 18:47
--- NOTE | 2019-08-22 19:29 | NUR.NOTE ---
Nursing Note:after provider replaced sressing pt was able to ambulate a short distance without strike through.
[2019-08-22 19:51] VITALS: BP 155/64; PULSE 62; RESP 18; TEMP 36.3; O2SAT 98
== END 2019-08-22 19:55 | disposition home or self-care (01) ==
PROVIDERS: Emergency Provider Registered Nurse Emergency; PCP Internal Medicine
DX: L76.22 Postprocedural hemorrhage of skin and subcutaneous tissue following other procedure (principal); Z96.642 Presence of left artificial hip joint; N18.9 Chronic kidney disease, unspecified; I12.9 Hypertensive chronic kidney disease with stage 1 through stage 4 chronic kidney disease, or unspecified chronic kidney disease; Z79.82 Long term (current) use of aspirin
CPT/HCPCS: 99282

== ENCOUNTER 2019-08-23 08:45 | Outpatient (CLI) | payer MEDICARE, SELFPAY | END 2019-08-23 09:05 | PROVIDERS: PCP Internal Medicine; Visit Provider Orthopaedic Surgery | DX: Z47.1 Aftercare following joint replacement surgery (principal); Z96.642 Presence of left artificial hip joint ==

== ENCOUNTER 2019-08-26 12:37 | Outpatient (REF) | payer MEDICARE, SELFPAY ==
[2019-08-26 20:44] LABS: HCT 31.3 % (36.0-46.0); HGB 10.4 g/dL (12.0-15.5); Mean Corp. HGB Concentration 33.2 g/dL (32.0-36.0); Mean Corpuscular Hemoglobin 32.8 pg (27.0-33.0); Mean Corpuscular Volume 98.7 fL (80-95); Mean Platelet Volume 9.4 fL (8.0-11.0); Platelet Count 320 x1000/uL (130-400); RBC 3.17 m/cumm (4.00-5.20); RBC Distribution Width 14.6 % (11.7-14.6); White Blood Cell Count 6.77 k/cumm (4.4-10.8)
[2019-08-26 21:45] LABS: ALT 38 U/L (14-59); AST 25 U/L (15-37); Albumin 3.1 g/dL (3.4-5.0); Alkaline Phosphatase 157 U/L (46-116); Anion Gap 10.6 mmol/L (3-11); BUN 19 mg/dL (7-18); Bilirubin, Total 0.7 mg/dL (0.2-1.0); CO2 24.4 mmol/L (21.0-32.0); CREATININE 1.32 mg/dL (0.55-1.02); Calcium 9.2 mg/dL (8.5-10.1); Chloride 107 mmol/L (98-107); Estimated GFR 40.02 (mL/min/1.73m2); Glucose 109 mg/dL (74-106); Potassium 4.5 mmol/L (3.5-5.1); Sodium 142 mmol/L (136-145)
== END 2019-08-26 12:57 ==
LOC: NCHCN 12:37
PROVIDERS: PCP Internal Medicine; Visit Provider Internal Medicine
DX: R11.0 Nausea (principal)
CPT/HCPCS: 80053; 85027

== ENCOUNTER 2019-08-30 10:03 | Emergency (ER) | payer MEDICARE, SELFPAY ==
[2019-08-30] VITALS (41 sets, daily range): BP systolic 103–165; BP diastolic 41–89; PULSE 55–76; RESP 12–31; TEMP 36.1–36.3; O2SAT 87–97
--- NOTE | 2019-08-30 10:18 | ED.GENADUL_ITS ---
Discharge Plan Disposition Patient Disposition: HOME Condition: Stable Discharge Details Chief Complaint: Nausea/Vomit/Diar Clinical Impression: Diarrhea, Dizziness, UTI (urinary tract infection) Primary Care Provider: Edson Hubbard ED Provider: Elizabeth Simons Home Meds and New Rx's Prescriptions: New cephalexin [Keflex] 500 mg capsule 500 mg PO BID 5 Days Qty: 10 RF: 0 meclizine 12.5 mg tablet 12.5 mg PO TID PRN (Reason: dizziness) Qty: 14 RF: 0 Continued amlodipine 10 mg tablet 10 mg PO DAILY RF: 0 atorvastatin 80 MG tablet 80 mg PO DAILY RF: 0 gabapentin 600 MG tablet 600 mg PO HS RF: 0 acetaminophen-codeine [Tylenol-Codeine #3] 1 TAB tablet 1 - 2 tab PO TID PRNRF: 0 aspirin [Aspirin Low Dose] 81 MG tablet,delayed release (DR/EC) 1 tab PO DAILY RF: 0 nitroglycerin [Nitrostat] 0.4 MG tablet, sublingual 1 tab Sublingual PRN PRNRF: 0 losartan 100 MG tablet 100 mg PO HS RF: 0 Anoro Ellipta 62.5-25 mcg/actuation blister with device 1 inh INHALATION DAILY RF: 0 trazodone 50 mg Tablet 50 mg PO QHS RF: 0 Discharge Instructions Instructions: Urinary Tract Infection in Women (ED), Acute Diarrhea (ED), Dizziness (ED) Additional Instructions: Drink plenty of fluids and get plenty of rest. Alternate tylenol and motrin as needed and directed for pain. Take the antibiotics until finished. Take the meclizine as needed and directed for dizziness. Call orthopedics on Monday for follow-up and to discuss your CT results today which noted an apparent fracture near the site of your recent total hip replacement. This was reviewed with orthopedics and there are no acute recommendations at this time and you can continue using your walker for ambulation. They will follow-up with you regarding these findings. Return immediately to the emergency department if you develop any worsening or concerning symptoms. Discharge Data Discharge Physician: Elizabeth Simons Medical Decision Making 1030 -- 68-year-old female with a history of congenital absent kidney, anxiety, depression, CVA, hypertension, hyperlipidemia who is 11 days status post left hip replacement presents for diarrhea for 2 days and 2 episodes of vertigo this morning. BP mildly hypertensive, otherwise vitals within normal limits and patient appears nontoxic. EKG notes a rate of 60, sinus versus junctional rhythm without acute ST ischemic findings. She has diffuse abdominal tenderness but otherwise abdomen is soft without rigidity or guarding. Left hip incision site healing well. Rectum normal to inspection. Suspect most likely vasovagal near syncope likely due to dehydration in setting of diarrhea. History and presentation not consistent with CVA, PE, ACS. Will place an IV, bolus IV fluids, check screening labs, urinalysis and CT abdomen and pelvis and give a dose of Tylenol, Zofran and reassess. 1200 --labs and imaging reviewed. CT reviewed and notes questionable enteritis but no other acute abdominal abnormality. Of note, radiologist noted an apparent greater trochanteric fracture at site of total hip replacement. This was discussed with orthopedics who did not have any acute recommendations and recommended patient continue her walker and follow-up with them in the office. Urinalysis resulted and notes UTI. Patient was given a dose of Rocephin here. Patient was able to eat and ambulate and denied any return of dizziness. She was requesting to go home. A prescription for Keflex given. Advised to follow up with the primary care doctor for re-evaluation. Usual and customary return precautions given prior to discharge. Medical Records Medical records reviewed: Yes I reviewed the patient's medical records. Imaging Data Radiologic Study: Radiologist's impression: CT ABDOMEN PELVIS W CLINICAL HISTORY: diffuse abd pain, diarrhea TECHNIQUE: COMPARISON: CR XR PELVIS AP from 08/19/2019 CR XR HIP LT IN OR from 08/19/2019 FINDINGS: CT examination of the abdomen pelvis was performed bolus infusion of 100 cc of Omnipaque 350. Images obtained through the bases are. The liver and spleen appear normal. Note is made prior cholecystectomy. No biliary dilatation seen. Adrenal glands have multinodular appearance bilaterally no mass. There is absence left kidney reportedly congenital. There is hypertrophy of right kidney. No urinary tract calcification or obstruction. Abdominal aorta is of normal diameter no significant abnormality major visceral vessels seen. No abdominal or pelvic adenopathy seen. Small fat containing lef t inguinal hernia noted. Patient reportedly has history of diarrhea. There is question of slight colonic wall edema and thickening duodenal wall. Some questionable jejunal wall thickening may also be present. These findings could be associated with enteritis. No evidence of obstruction. The patient is reportedly status post recent left hip replacement surgery. There are multiple fluid collections overlying the trochanteric region in the musculature and subcutaneous tissues of the left hip region. Note is also made of an apparent mildly displaced fracture of the greater trochanter which does not appear to have been present on postoperative films of August 18. IMPRESSION: Question enteritis. Apparent greater trochanteric fracture of the femur on the left associated with recent total hip joint replacement. The fracture was not evident on in the postoperative films. Lab Data Lab results reviewed: Yes I reviewed the patient's lab results. Labs: 08/30/19 13:10 Urine - Reflex from Ua Urine Culture - Pending Laboratory Tests Range/Units 08/30/19 08/30/19 08/30/19 10:30 10:30 13:10 WBC (4.4-10.8) k/cumm 8.66 RBC (4.00-5.20) m/cumm 3.11 L Hgb (12.0-15.5) g/dL 10.2 L Hct (36.0-46.0) % 31.1 L MCV (80-95) fL 100.0 H MCH (27.0-33.0) pg 32.8 MCHC (32.0-36.0) g/dL 32.8 RDW (11.7-14.6) % 14.9 H Plt Count (130-400) x1000/uL 368 MPV (8.0-11.0) fL 8.3 Immature Gran % % 0.9 Neutrophils % 78.5 Lymphocytes % 11.4 Monocytes % 7.4 Eosinophils % 1.6 Basophils % 0.2 Absolute Neutrophils (1.2-6.7) k/cumm 6.79 H Absolute Lymphocytes (1.2-3.4) k/cumm 0.99 L Absolute Monocytes (0.11-0.7) k/cumm 0.64 Absolute Eosinophils (0.0-0.7) k/cumm 0.14 Absolute Basophils (0.0-0.2) k/cumm 0.02 Sodium (136-145) mmol/L 139 Potassium (3.5-5.1) mmol/L 4.0 Chloride (98-107) mmol/L 104 Carbon Dioxide (21.0-32.0) mmol/L 26.1 Anion Gap (3-11) mmol/L 8.9 BUN (7-18) mg/dL 15 Creatinine (0.55-1.02) mg/dL 1.31 H Estimated GFR/1.73 m2 (mL/min/1.73m2) 40.38 Glucose (74-106) mg/dL 94 Calcium (8.5-10.1) mg/dL 8.9 Total Bilirubin (0.2-1.0) mg/dL 0.6 AST (15-37) U/L 13 L ALT (14-59) U/L 19 Alkaline Phosphatase (46-116) U/L 112 Total Protein (6.4-8.2) g/dL 6.1 L Albumin (3.4-5.0) g/dL 3.1 L Lipase (73-393) U/L 63 Urine Color (Yellow) Yellow Urine Clarity (Clear) Clear Urine pH (5-8) 5.5 Ur Specific [place] (1.005-1.025) 1.010 Urine Protein (Negative) mg/dL Negative Urine Ketones (Negative) mg/dL 15 H Urine Blood (Negative) Trace-intact H Urine Nitrite (Negative) Positive H Urine Bilirubin (Negative) Negative Urine Urobilinogen (Up TO 0.2) EU/dL 0.2 Ur Leukocyte Esterase (Negative) Negative Urine RBC (0-2) HPF 0-2 Urine WBC (0-5) HPF 5-10 Ur Epithelial Cells (Negative) HPF Few Urine Crystals (Negative) HPF Negative Urine Bacteria (Negative) HPF Moderate Urine Casts (Negative) LPF Negative Urine Mucus (Negative) Moderate Ur Culture Indicated? Yes Urine Glucose (Negative) mg/dL Negative ECG Data Attestation: I personally reviewed and interpreted this ECG (s) as follows: Interpretation: rate of 60, read as junctional, p waves visible in most leads. No acute ST elevation or depression. QRS 88. QTc 388. HPI General Mode of arrival: ambulatory . Date/Time Provider Initiated Documentation: 08/30/19 10:05 . Limitations to Documentation: no limitations . Information obtained by: patient . HPI Narrative: Patient is a 68-year-old female with a history of congenital absent kidney, anxiety and depression, hypertension, hyperlipidemia who is 11 days status post left hip replacement presents for diarrhea and dizziness today. Patient states she has had approximately 18 episodes of watery brown diarrhea since yesterday. She states she was walking back from the bathroom this morning and getting back into bed and adjusting her CPAP when she noted the room to be spinning. She states this then improved with rest. She states she got up to use the bathroom a little while later and felt lightheadedness and a sensation of room spinning while walking into the bathroom. She denies any headache, chest pain, shortness of breath, vomiting. She does admit to intermittent nausea and crampy lower abdominal pain that is currently 4/10. She denies any urinary symptoms. She took a dose of Tylenol this morning without relief. Related Data Home Medications Medication Instructions Recorded Confirmed acetaminophen-codeine 1 - 2 tab PO TID PRN 04/30/14 08/30/19 [Tylenol-Codeine #3] aspirin [Aspirin Low Dose] 1 tab PO DAILY 04/30/14 08/30/19 losartan 100 mg PO HS 04/30/14 08/30/19 nitroglycerin [Nitrostat] 1 tab SUBLINGUAL PRN PRN 04/30/14 08/30/19 atorvastatin 80 mg PO DAILY tab-cap 03/16/15 08/30/19 gabapentin 600 mg PO HS 03/16/15 08/30/19 amlodipine 10 mg tablet 10 mg PO DAILY 07/23/19 08/30/19 Anoro Ellipta 1 inh INHALATION DAILY 08/14/19 08/30/19 trazodone 50 mg PO QHS 08/19/19 08/30/19 cephalexin [Keflex] 500 mg PO BID 5 Days #10 cap 08/30/19 meclizine 12.5 mg PO TID PRN #14 tab 08/30/19 Previous Rx's Medication Instructions Recorded cephalexin [Keflex] 500 mg PO BID 5 Days #10 cap 08/30/19 meclizine 12.5 mg PO TID PRN #14 tab 08/30/19 Allergies Allergy/AdvReac Type Severity Reaction Status Date / Time prochlorperazine edisylate Allergy Intermediate Unverified 08/30/19 10:19 [From Compazine] prochlorperazine maleate Allergy Intermediate Unverified 08/30/19 10:19 [From Compazine] acetaminophen [From Percocet] AdvReac Mild Verified 08/30/19 10:19 atenolol AdvReac Mild Verified 08/30/19 10:19 hydrochlorothiazide AdvReac Mild Verified 08/30/19 10:19 hydrocodone [From Vicodin] AdvReac Mild Verified 08/30/19 10:19 lisinopril AdvReac Mild Verified 08/30/19 10:19 oxycodone [From Percocet] AdvReac Mild Verified 08/30/19 10:19 General Stated Complaint: Nausea/Vomit/Diar GWYN: 3 Review of Systems All systems reviewed & are unremarkable except as noted in HPI and below Constitutional Constitutional: Reports as per HPI, Denies chills and Denies fever(s) Eyes Eyes: Denies blurry vision ENT Ears, Nose, Mouth, and Throat: Denies dizziness, Denies sore throat and Denies throat swelling Cardiovascular Cardiovascular: Denies chest pain and Denies dyspnea Respiratory Respiratory: Denies cough and Denies dyspnea Gastrointestinal Gastrointestinal: Reports abdominal pain, Reports diarrhea, Reports nausea and Denies vomiting Genitourinary Genitourinary: Denies hematuria and Denies dysuria Musculoskeletal Musculoskeletal: Denies back pain and Denies numbness Integumentary/Breasts Skin/Breast: Denies lesions and Denies rash Neurologic Neurologic: Denies dizziness, Denies localized weakness and Denies numbness Allergic/Immunologic Allergic/Immunologic: Denies throat swelling FORMERLY [facility], 1928–1983 Medical History (Updated 08/30/19 @ 15:37 by Elizabeth Simons DO) Absent kidney, congenital (Acute) Anxiety and depression (Chronic) Cigarette smoker (Acute) 1/2-3/4 PPD Conversion disorder (Acute) Had left sided weakness in the that improved and slowly resolved after [facility] interview. History of depression and suicide attempt. 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 she will cough a lot Osteoarthritis (Chronic) Raynauds disease (Acute) Reactive airway disease (Acute) Renal insufficiency (Chronic) RLS (restless legs syndrome) (Acute) Senile hyperkeratosis (Acute) Stress incontinence (Acute) Stroke (Chronic) 2008, left sided weakness-resolved no deficits Varicose veins of both lower extremities (Acute) Surgical History (Updated 08/23/19 @ 16:38 by PIPPA Matute) History of appendectomy (Chronic) History of carpal tunnel release (Acute) History of cholecystectomy (Chronic) History of hysterectomy (Chronic) History of knee replacement (Chronic) bilateral History of total left hip replacement (Acute 08/19/19) Social History Smoking/Tobacco Use Status: Current every day Tobacco Type: cigarettes Tobacco: How many years used: 60 Quit status: not considering quitting Counseling given: counseling >3 minutes Alcohol Intake: former Drug use: Never Substance use type: does not use Do you feel safe at home: Yes Do you feel safe in your relationship?: Yes Exam Const General: cooperative, healthy appearing and no acute distress HENMT Head: normal to inspection Face and sinus: normal facial exam Eyes General: appearance normal, both eyes and all related structures EOM: EOM intact bilaterally Neck Neck: normal visual inspection and No submandibular swelling Lymphatic: no lymphadenopathy noted Chest Chest: normal inspection of the chest and no tenderness Resp Effort & Inspection: normal respiratory effort and able to speak in complete sentences Auscultation: clear to auscultation bilaterally Cardio Rate: regular rate Rhythm: regular rhythm GI Inspection: normal to inspection Palpation: soft, not firm, not rigid and tender (diffuse, worse in epigastrum and across lower abdomen) Auscultation: hyperactive bowel sounds Skin General skin exam: no rashes or lesions noted Neuro General: patient alert, patient awake and patient oriented x3 Cognition: normal cognition Speech: speech normal Motor: muscle tone normal throughout Sensory Exam: no sensory deficits noted Extrem General: normal to inspection, full ROM, capillary refill normal, no calf tenderness bilaterally and edema Laterality: left (1+ pitting) Psych Appearance: grossly normal Mental Status: mental status grossly normal Speech and Movement: speech and movement normal Affect: normal affect Course Vital Signs Vital signs: Vital Signs Temperature 97.3 F L 08/30/19 10:15 Pulse 63 08/30/19 10:15 Respiratory Rate 14 08/30/19 10:15 Blood Pressure 165/63 H 08/30/19 10:15 Pulse Oximetry 97 08/30/19 10:15 Temperature 97.3 F L 08/30/19 10:15 Temperature Source Tympanic 08/30/19 10:15 Pulse 63 08/30/19 10:15 Respiratory Rate 14 08/30/19 10:15 Blood Pressure 165/63 H 08/30/19 10:15 Blood Pressure Position Sitting 08/30/19 10:15 Pulse Oximetry 97 08/30/19 10:15 Oxygen Delivery Method Room Air 08/30/19 10:15 Oxygen Flow Rate 0 08/30/19 10:15 Pain Level 8 08/30/19 10:15
[2019-08-30 10:39] LABS: Abs Immature Grans 0.08 k/cumm (0.0-0.09); Absolute Basophil Count 0.02 k/cumm (0.0-0.2); Absolute Eosinophil Count 0.14 k/cumm (0.0-0.7); Absolute Lymphocyte Count 0.99 k/cumm (1.2-3.4); Absolute Monocyte Count 0.64 k/cumm (0.11-0.7); Absolute Neutrophil Count 6.79 k/cumm (1.2-6.7); Basophils % 0.2; Eosinophils % 1.6; HCT 31.1 % (36.0-46.0); HGB 10.2 g/dL (12.0-15.5); Immature Grans % 0.9 %; Lymphocytes % 11.4; Mean Corp. HGB Concentration 32.8 g/dL (32.0-36.0); Mean Corpuscular Hemoglobin 32.8 pg (27.0-33.0); Mean Platelet Volume 8.3 fL (8.0-11.0); Monocytes % 7.4; Neutrophils % 78.5; Platelet Count 368 x1000/uL (130-400); RBC 3.11 m/cumm (4.00-5.20); RBC Distribution Width 14.9 % (11.7-14.6); White Blood Cell Count 8.66 k/cumm (4.4-10.8)
--- NOTE | 2019-08-30 10:45 | DI.CT_ITS ---
EXAM: CT ABDOMEN PELVIS W CLINICAL HISTORY: diffuse abd pain, diarrhea TECHNIQUE: COMPARISON: CR XR PELVIS AP from 08/19/2019 CR XR HIP LT IN OR from 08/19/2019 FINDINGS: CT examination of the abdomen pelvis was performed bolus infusion of 100 cc of Omnipaque 350. Images obtained through the bases are. The liver and spleen appear normal. Note is made prior cholecystec claudia. No biliary dilatation seen. Adrenal glands have multinodular appearance bilaterally no mass. There is absence left kidney report edly congenital. There is hypertrophy of right kidney. No urinary tract calcification or obstructio n. Abdominal aorta is of normal diameter no significant abnormality major visceral vessels seen. No abd ominal or pelvic adenopathy seen. Small fat containing left inguinal hernia noted. Patient reportedly has history of diarrhea. There is question of slight colonic wall edema and thick ening duodenal wall. Some questionable jejunal wall thickening may also be present. These findings could be associated with enteritis. No evidence of obstruction. The patient is reportedly status post recent left hip replacement surgery. There are multiple fluid collections overlying the trochanteric region in the musculature and subcutaneous tissues of the left hip region. Note is also made of an apparent mildly displaced fracture of the greater trochanter wh ich does not appear to have been present on postoperative films of August 18. IMPRESSION: Question enteritis. Apparent greater trochanteric fracture of the femur on the left associated with recent total hip join t replacement. The fracture was not evident on in the postoperative films.
[2019-08-30 10:53] LABS: ALT 19 U/L (14-59); AST 13 U/L (15-37); Albumin 3.1 g/dL (3.4-5.0); Alkaline Phosphatase 112 U/L (46-116); Anion Gap 8.9 mmol/L (3-11); BUN 15 mg/dL (7-18); Bilirubin, Total 0.6 mg/dL (0.2-1.0); CO2 26.1 mmol/L (21.0-32.0); CREATININE 1.31 mg/dL (0.55-1.02); Calcium 8.9 mg/dL (8.5-10.1); Chloride 104 mmol/L (98-107); Estimated GFR 40.38 (mL/min/1.73m2); Glucose 94 mg/dL (74-106); Lipase 63 U/L (73-393); Sodium 139 mmol/L (136-145); Total Protein 6.1 g/dL (6.4-8.2)
[2019-08-30] MEDS: ACETAMINOPHEN 1,000 MG/100 ML BTL 400 MG IVPB (11:18)
[2019-08-30] MEDS: Ondansetron 4 MG/2 ML VIAL IVP (11:18)
[2019-08-30] MEDS: Normal Saline Flush 10 ML SYR IVP (11:19)
[2019-08-30] MEDS: Normal Saline 1,000 ML 1000 ML IV ×2 (11:19→13:31)
--- NOTE | 2019-08-30 11:45 | RT.EKG_ITS ---
APPROVED REPORT Exam: Resting ECG Patient Location: E HR:60 bpm ECG Measurements Heart Rate 60 AXIS MD [id number] P [id number] QRSd 88 QRS 9 QT 389 T 28 QTc 388 <Conclusion> Junctional rhythm...absent P waves, slow V-rate P waves visible in most leads, sinus vs junctional. No acute ST elevation or depression.
[2019-08-30] MEDS: Omnipaque 350 MG/ML 100 ML BTL IJ (12:04)
[2019-08-30] MEDS: Meclizine 25 MG TAB PO (12:23)
[2019-08-30 13:23] LABS: Bilirubin Negative (Negative); Blood Trace-intact (Negative); Clarity Clear (Clear); Glucose Negative (Negative); Ketones 15 mg/dL (Negative); Leukocyte Esterase Negative (Negative); Nitrite Positive (Negative); Urobilinogen 0.2 EU/dL (Up TO 0.2); pH 5.5 (5-8)
[2019-08-30 13:32] LABS: Bacteria Moderate HPF (Negative); C & S Indicated? Yes; Casts Negative LPF (Negative); Crystals Negative HPF (Negative); Epithelial Cells Few HPF (Negative); Mucus Moderate (Negative); RBC 0-2 HPF (0-2)
[2019-08-30] MEDS: cefTRIAXone 1 GM/50 ML BAG IVPB (14:14)
--- NOTE | 2019-09-02 20:32 | W.ED.FU ---
Follow Up Plan: Patient discharged on Keflex. Urine culture resulted with greater than 100,000 colonies E. coli. Sensitivities show resistance to Keflex. I called the patient on numbers listed, left message, no return call during my shift 09/02/2019. Note left in culture call backs.
== END 2019-08-30 15:55 | disposition home or self-care (01) ==
PROVIDERS: Emergency Provider Physician Assistant; PCP Internal Medicine
DX: N39.0 Urinary tract infection, site not specified (principal); B96.20 Unspecified Escherichia coli [E. coli] as the cause of diseases classified elsewhere; R19.7 Diarrhea, unspecified; R42 Dizziness and giddiness; R93.7 Abnormal findings on diagnostic imaging of other parts of musculoskeletal system; E86.0 Dehydration; I12.9 Hypertensive chronic kidney disease with stage 1 through stage 4 chronic kidney disease, or unspecified chronic kidney disease; N18.9 Chronic kidney disease, unspecified; K58.0 Irritable bowel syndrome with diarrhea
CPT/HCPCS: 36415; 80053; 83690; 87077; 93005; 96361; 96365; 96375; 99285; 74177; 81003; 81015; 85025; 87086; 87186; 93010; J0131; J0696; J2405; J3490

== ENCOUNTER 2019-09-03 13:06 | Outpatient (CLI) | payer MEDICARE, SELFPAY ==
--- NOTE | 2019-09-03 11:30 | DI.RAD_ITS ---
EXAM: XR HIP LT COMPLETE AP PELVIS CLINICAL HISTORY: f/u. TECHNIQUE: 2D digital imaging was performed. COMPARISON: CR XR HIP LT COMPLETE AP PELVIS from 07/01/2019 CR XR HIP LT IN OR from 08/19/[address] ABDOMEN PELVIS W from 08/30/2019 FINDINGS: BONES: There is a mildly displaced fracture of the greater trochanter of the left femur again noted. It is unchanged in alignment compared to the CT scan from 08/30/2019. No bony destructive lesion is s een. JOINTS: There is a stable left total hip replacement. No evidence of hardware loosening is seen. SOFT TISSUE: Normal. IMPRESSION: 1. Left total hip arthroplasty. 2. Mildly displaced greater trochanteric fracture of the left femur. DATA REPOSITORY: RADIATION DOSE DELIVERED:
== END 2019-09-03 13:26 ==
PROVIDERS: PCP Internal Medicine; Referring Provider Internal Medicine; Visit Provider Orthopaedic Surgery
DX: Z96.642 Presence of left artificial hip joint (principal); Z47.1 Aftercare following joint replacement surgery
CPT/HCPCS: 73502

== ENCOUNTER 2019-09-18 09:34 | Outpatient (REF) | payer MEDICARE, SELFPAY ==
[2019-09-18 21:29] LABS: C Difficile PCR Negative (Negative)
[2019-09-19 10:41] LABS: Campylobacter PCR Negative (Negative); Salmonella PCR Negative (Negative); Shiga Toxin PCR Negative (Negative); Shigella/Enteroinvasive Ecoli Negative (Negative)
== END 2019-09-18 09:54 ==
LOC: NCHCN 09:34
PROVIDERS: PCP Internal Medicine; Visit Provider Internal Medicine
DX: R19.7 Diarrhea, unspecified (principal)
CPT/HCPCS: 87505; 82272; 83630; 87324; 87798

== ENCOUNTER 2019-09-26 16:03 | Emergency (ER) | payer MEDICARE, SELFPAY ==
[2019-09-26 16:15] VITALS: BP 134/80; PULSE 61; RESP 20; TEMP 36.5; O2SAT 98
--- NOTE | 2019-09-26 16:50 | W.ED.GENAD ---
Discharge Plan Disposition Patient Disposition: HOME Condition: Stable Discharge Details Chief Complaint: Orthopedic Clinical Impression: Fracture of hip, left, closed Primary Care Provider: Edson Hubbard ED Provider: Eric Lees Home Meds and New Rx's Prescriptions: New oxycodone 5 mg tablet 5 mg PO BID PRN (Reason: Severe pain) Qty: 10 RF: 0 Continued amlodipine 10 mg tablet 10 mg PO DAILY RF: 0 atorvastatin 80 MG tablet 80 mg PO DAILY RF: 0 gabapentin 600 MG tablet 600 mg PO HS RF: 0 aspirin [Aspirin Low Dose] 81 MG tablet,delayed release (DR/EC) 1 tab PO DAILY RF: 0 nitroglycerin [Nitrostat] 0.4 MG tablet, sublingual 1 tab Sublingual PRN PRNRF: 0 losartan 100 MG tablet 100 mg PO HS RF: 0 Anoro Ellipta 62.5-25 mcg/actuation blister with device 1 inh INHALATION DAILY RF: 0 trazodone 50 mg Tablet 50 mg PO QHS RF: 0 Discontinued acetaminophen-codeine [Tylenol-Codeine #3] 1 TAB tablet 1 - 2 tab PO TID PRNRF: 0 Discharge Instructions Additional Instructions: Please rest your left hip. Minimize ambulation. Use walker to assist with any necessary ambulation. Call orthopedics to arrange follow-up with Dr. Lira. Call tomorrow. Continue taking Tylenol --please take acetaminophen (tylenol) - 650mg every 6 hours by mouth as needed for pain. Take oxycodone as prescribed. Please contact your primary care physician to arrange follow-up. Return to the ER for any worsening or new concerning symptoms. Referrals: Amanuel Lira MD [ [facility] STAFF PHYSICIAN] - Edson Hubbard MD [Primary Care Provider] - Discharge Data Discharge Date/Time-TO BE ENTERED AT DEPARTURE: 09/26/19 17:33 Medical Decision Making 68-year-old female presents 5 weeks status post total left hip replacement, postoperative fracture of the greater trochanter noted on imaging a couple weeks ago, now with worsening pain over the past 2 days. Patient did take ibuprofen and Tylenol today without relief. No inflammatory changes around the wound and no fever. Discussed risk benefits of opioid treatment. Patient provided informed consent to proceed with treatment with Dilaudid 1 mg IM. X-ray of the left hip was reviewed and interpreted by radiology: Healed small defect along the upper margin of the proximal lateral femur adjacent to the chronic displaced greater trochanter. Unchanged left hip prostheses. I did call and speak with on-call orthopedics, Dr. Rodriguez, we discussed ED presentation and course and he reviewed the x-rays. He recommends pain control and outpatient follow-up with Dr. Lira. Plan discussed with the patient. Patient notes significant improvement in pain after Dilaudid IM. Plan to prescribe a short course of oxycodone. Patient provided informed consent to treatment with oxycodone and understands the risks of this medication. Usual and customary discharge instructions were provided. HPI General Mode of arrival: ambulatory. Date/Time Provider Initiated Documentation: 09/26/19 16:16. Limitations to Documentation: no limitations. Information obtained by: patient. HPI Narrative: 68-year-old female presents with chief complaint of left hip pain. Patient notes that she started to have worsening pain 2 days ago. Patient had an ORIF of her left hip on 08/19/2019 and in follow-up it was noted on a CT of the abdomen and pelvis that she had a apparent fracture of her greater trochanter. She followed up with orthopedic clinic who obtained x-ray that did confirm a mildly displaced greater trochanteric fracture of her left hip. Plan from clinic visit on 09/03/2019 was conservative management, need to monitor for any displacement and if displaced would need likely ORIF. Patient denies any recent trauma. She does state that a few days ago she went out of the house using a cane to try to get around. She did not fall or twist her leg. She states when she got home she had significantly worse pain in her left hip that has persisted now for 2 days. Pain is described as ache, constant, worse with any movement of her hip. She has no associated fever. No rash. No numbness or weakness. Related Data Home Medications Medication Instructions Recorded Confirmed aspirin [Aspirin Low Dose] 1 tab PO DAILY 04/30/14 10/01/19 losartan 100 mg PO HS 04/30/14 10/01/19 nitroglycerin [Nitrostat] 1 tab SUBLINGUAL PRN PRN 04/30/14 10/01/19 atorvastatin 80 mg PO DAILY tab-cap 03/16/15 10/01/19 gabapentin 600 mg PO HS 03/16/15 10/01/19 amlodipine 10 mg tablet 10 mg PO DAILY 07/23/19 10/01/19 Anoro Ellipta 1 inh INHALATION DAILY 08/14/19 10/01/19 trazodone 50 mg PO QHS 08/19/19 10/01/19 oxycodone 5 mg PO BID PRN #10 tab 09/26/19 10/01/19 Previous Rx's Medication Instructions Recorded oxycodone 5 mg PO BID PRN #10 tab 09/26/19 Allergies Allergy/AdvReac Type Severity Reaction Status Date / Time prochlorperazine edisylate Allergy Intermediate Unverified 10/01/19 11:30 [From Compazine] prochlorperazine maleate Allergy Intermediate Unverified 10/01/19 11:30 [From Compazine] acetaminophen [From Percocet] AdvReac Mild Verified 10/01/19 11:30 atenolol AdvReac Mild Verified 10/01/19 11:30 hydrochlorothiazide AdvReac Mild Verified 10/01/19 11:30 hydrocodone [From Vicodin] AdvReac Mild Verified 10/01/19 11:30 lisinopril AdvReac Mild Verified 10/01/19 11:30 oxycodone [From Percocet] AdvReac Mild Verified 10/01/19 11:30 General Stated Complaint: Orthopedic GWYN: 3 Review of Systems Constitutional Constitutional: Denies fever(s) Musculoskeletal Musculoskeletal: Reports as per HPI Integumentary/Breasts Skin/Breast: Reports as per HPI Neurologic Neurologic: Reports as per HPI [facility] Medical History Absent kidney, congenital (Acute) Anxiety and depression (Chronic) Cigarette smoker (Acute) 1/2-3/4 PPD Conversion disorder (Acute) Had left sided weakness in the that improved and slowly resolved after Amytal interview. History of depression and suicide attempt. Coronary arteriosclerosis (Acute) CVA (cerebral vascular accident) (Chronic) 13 years ago shortly after her LEFT TKA Eustachian tube disorder (Acute) Fecal incontinence (Acute) History of chest pain (Acute) Suspected DE 2006 Hypercholesteremia (Acute) Hypertension (Chronic) IBS (irritable bowel syndrome) (Chronic) Lesion of eyelid (Acute) left upper eyelid Migraine (Chronic) history og migraines Neuropathy (Acute) Obesity (Chronic) ELVIN on CPAP (Chronic) Pt. 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 she will cough a lot Osteoarthritis (Chronic) Raynauds disease (Acute) Reactive airway disease (Acute) Renal insufficiency (Chronic) RLS (restless legs syndrome) (Acute) Senile hyperkeratosis (Acute) Stress incontinence (Acute) Stroke (Chronic) 2008, left sided weakness-resolved no deficits Varicose veins of both lower extremities (Acute) Surgical History History of appendectomy (Chronic) History of carpal tunnel release (Acute) History of cholecystectomy (Chronic) History of hysterectomy (Chronic) History of knee replacement (Chronic) bilateral History of total left hip replacement (Acute 08/19/19) Family History Other Cancer Diabetes Glaucoma Heart disease Hypertension Social History Smoking/Tobacco Use Status: Current every day Tobacco Type: cigarettes Tobacco: How many years used: 60 Quit status: not considering quitting Counseling given: counseling >3 minutes Alcohol Intake: former Drug use: Never Substance use type: does not use Do you feel safe at home: Yes Do you feel safe in your relationship?: Yes Exam Const General: cooperative and uncomfortable (With any movement) HENMT Mouth: moist mucous membranes Eyes Conjunctivae: normal conjunctivae Sclera: normal sclerae Cardio Rate: regular rate Rhythm: regular rhythm Pulses: dorsalis pedis present bilaterally 1+ Skin General skin exam: no rashes or lesions noted Neuro General: patient alert, patient awake and tone normal Extrem General: no edema Left lower extremity: hip/thigh Details: abnormal ROM Details: pain with active ROM (External rotation, internal rotation, and abduction) and other (Surgical wound healing without inflammatory change); no swelling, no ecchymosis and no unusual warmth Course Vital Signs Vital signs: Vital Signs Temperature 36.5 C 09/26/19 16:15 Pulse 61 09/26/19 16:15 Respiratory Rate 20 09/26/19 16:15 Blood Pressure 134/80 09/26/19 16:15 Pulse Oximetry 98 09/26/19 16:15 Temperature 36.5 C 09/26/19 16:15 Temperature Source Tympanic 09/26/19 16:15 Pulse 61 09/26/19 16:15 Respiratory Rate 20 09/26/19 16:15 Respiratory Effort 09/26/19 16:22 Blood Pressure 134/80 09/26/19 16:15 Pulse Oximetry 98 09/26/19 16:15 Oxygen Delivery Method Room Air 09/26/19 16:15 Oxygen Flow Rate 0 09/26/19 16:15
--- NOTE | 2019-09-26 17:00 | DI.RAD_ITS ---
EXAM: XR HIP LT COMPLETE AP PELVIS CLINICAL HISTORY: pain left hip, known fracture post ORIF. TECHNIQUE: 2D digital imaging was performed. COMPARISON: CR XR HIP LT COMPLETE AP PELVIS from 09/03/2019 FINDINGS: BONES: No change in alignment of the fracture of the greater trochanter of the left femur. No bony d estructive lesion is seen. JOINTS: Stable left total hip arthroplasty. No evidence of hardware failure. SOFT TISSUE: Normal. IMPRESSION: Stable left total hip arthroplasty. Stable greater trochanteric fracture. DATA REPOSITORY: RADIATION DOSE DELIVERED:
--- NOTE | 2019-09-26 17:15 | DI.VRAD_ITS ---
PROCEDURE INFORMATION: Exam: XR Left Hip with Pelvis when Performed Exam date and time: 09/26/2019 4:52 PM Age: 68 years old Clinical indication: Other: Pain left hip, known fracture post orif TECHNIQUE: Imaging protocol: XR Left hip with pelvis when performed. Views: 2 or 3 views. COMPARISON: CR XR HIP LT COMPLETE AP PELVIS 09/03/2019 11:52 AM FINDINGS: Bones/joints: There has been total left total hip arthroplasty. The components are intact, normally aligned and there is no evident loosening. Chronic unchanged displaced left greater trochanter. A small defect along the opposed margin of the proximal lateral femur is healed. Mild left inferior sacroiliac joint sclerosis. Soft tissues: Unremarkable. IMPRESSION: 1. Healed small defect along the upper margin of the proximal lateral femur adjacent to the chronic displaced greater trochanter. 2. Unchanged left hip prosthesis. Dictated and Authenticated by: Josiah Angela MD. Ordering:TERRA Reyes MD
[2019-09-26] MEDS: HYDROmorphone 2 MG/ML VIAL 1 MG IM (17:23)
[2019-09-26 17:29] VITALS: BP 155/70; PULSE 58; RESP 16; TEMP 36.4; O2SAT 98
== END 2019-09-26 17:33 | disposition home or self-care (01) ==
PROVIDERS: Emergency Provider Student in an Organized Health Care Education/Training Program; PCP Internal Medicine
DX: S72.112A Displaced fracture of greater trochanter of left femur, initial encounter for closed fracture (principal); X58.XXXA Exposure to other specified factors, initial encounter; Y83.1 Surgical operation with implant of artificial internal device as the cause of abnormal reaction of the patient, or of later complication, without mention of misadventure at the time of the procedure; Z96.642 Presence of left artificial hip joint; I12.9 Hypertensive chronic kidney disease with stage 1 through stage 4 chronic kidney disease, or unspecified chronic kidney disease; N18.9 Chronic kidney disease, unspecified
CPT/HCPCS: 96372; 99284; 73502; 99283

== ENCOUNTER 2019-10-01 14:31 | Outpatient (CLI) | payer MEDICARE, SELFPAY ==
--- NOTE | 2019-10-01 11:15 | DI.RAD_ITS ---
EXAM: XR PELVIS AP INDICATION: f/u. COMPARISON: CR,XR XR HIP LT COMPLETE AP PELVIS from 09/26/2019 TECHNIQUE: 2D digital imaging was performed. FINDINGS: There has been no change in the fracture at the left greater trochanter or appearance of the left hip prosthesis. Mild degenerative changes are again noted in right hip. DATA REPOSITORY: RADIATION DOSE DELIVERED:
== END 2019-10-01 14:51 ==
PROVIDERS: PCP Internal Medicine; Referring Provider Internal Medicine; Visit Provider Orthopaedic Surgery
DX: Z96.642 Presence of left artificial hip joint (principal); S72.112D Displaced fracture of greater trochanter of left femur, subsequent encounter for closed fracture with routine healing; M16.11 Unilateral primary osteoarthritis, right hip; X58.XXXD Exposure to other specified factors, subsequent encounter; I10 Essential (primary) hypertension
CPT/HCPCS: 72170

== ENCOUNTER 2019-10-01 15:47 | Outpatient (REF) | payer MEDICARE, SELFPAY ==
[2019-10-02 19:16] LABS: C Difficile PCR Negative (Negative)
== END 2019-10-01 16:07 ==
LOC: NCHCN 15:47
PROVIDERS: PCP Internal Medicine; Visit Provider Internal Medicine
DX: K58.0 Irritable bowel syndrome with diarrhea (principal)
CPT/HCPCS: 87324; 87798

== ENCOUNTER 2019-10-15 11:38 | Outpatient (CLI) | payer MEDICARE, SELFPAY ==
--- NOTE | 2019-10-15 11:30 | DI.RAD_ITS ---
EXAM: XR PELVIS AP CLINICAL HISTORY: s/p LTHA and greater troch fracture. TECHNIQUE: 2D digital imaging was performed. COMPARISON: CR XR PELVIS AP from 10/01/2019 FINDINGS: BONES: There has been no change in alignment of the fracture of the greater trochanter of the left fe mur. No bony destructive lesion is seen. JOINTS: No dislocation present. No joint space narrowing is present. There is a stable left total hip arthroplasty. SOFT TISSUE: Vascular calcifications are present. IMPRESSION: Stable left greater trochanteric fracture. DATA REPOSITORY: RADIATION DOSE DELIVERED:
== END 2019-10-15 11:58 ==
PROVIDERS: PCP Internal Medicine; Referring Provider Internal Medicine; Visit Provider Orthopaedic Surgery
DX: Z96.642 Presence of left artificial hip joint (principal); S72.112A Displaced fracture of greater trochanter of left femur, initial encounter for closed fracture
CPT/HCPCS: 72170

== ENCOUNTER 2019-11-12 11:04 | Outpatient (CLI) | payer MEDICARE, SELFPAY ==
--- NOTE | 2019-11-12 09:15 | DI.RAD_ITS ---
EXAM: XR HIP LT COMPLETE AP PELVIS INDICATION: s/p left hip replacement. COMPARISON: CR XR PELVIS AP from 08/19/2019 CR XR PELVIS AP from 10/15/2019 TECHNIQUE: 2D digital imaging was performed. FINDINGS: A left hip prosthesis is again noted. There has been no change in the alignment of the greater tuber osity fracture DATA REPOSITORY: RADIATION DOSE DELIVERED:
== END 2019-11-12 11:24 ==
PROVIDERS: PCP Internal Medicine; Referring Provider Internal Medicine; Visit Provider Orthopaedic Surgery
DX: Z96.642 Presence of left artificial hip joint (principal); S72.002A Fracture of unspecified part of neck of left femur, initial encounter for closed fracture
CPT/HCPCS: 73502

== ENCOUNTER 2019-12-01 15:24 | Emergency (ER) | payer MEDICARE, SELFPAY ==
[2019-12-01 15:33] VITALS: BP 179/76; PULSE 86; RESP 18; TEMP 36.8; O2SAT 97
--- NOTE | 2019-12-01 15:42 | W.ED.GENAD ---
Discharge Plan Disposition Patient Disposition: HOME Condition: Stable Discharge Details Clinical Impression: Pain of left hip joint Primary Care Provider: Edson Hubbard ED Provider: Eirc Lees Home Meds and New Rx's Prescriptions: Continued amlodipine 10 mg tablet 10 mg PO DAILY RF: 0 atorvastatin 80 MG tablet 80 mg PO DAILY RF: 0 gabapentin 600 MG tablet 600 mg PO HS RF: 0 aspirin [Aspirin Low Dose] 81 MG tablet,delayed release (DR/EC) 1 tab PO DAILY RF: 0 nitroglycerin [Nitrostat] 0.4 MG tablet, sublingual 1 tab Sublingual PRN PRNRF: 0 losartan 100 MG tablet 100 mg PO HS RF: 0 Anoro Ellipta 62.5-25 mcg/actuation blister with device 1 inh INHALATION DAILY RF: 0 trazodone 50 mg Tablet 50 mg PO QHS RF: 0 oxycodone 5 mg tablet 5 mg PO BID PRN (Reason: Severe pain) Qty: 10 RF: 0 Discharge Instructions Additional Instructions: Please take acetaminophen (tylenol) - 650mg every 6 hours by mouth as needed for pain. Please take your medication as prescribed. Please contact your orthopedic surgeon tomorrow to arrange follow-up. Return to the ER for any worsening or new concerning symptoms. Referrals: Amanuel Lira MD [[facility] STAFF PHYSICIAN] - Edson Hubbard MD [Primary Care Provider] - Discharge Data Discharge Date/Time-TO BE ENTERED AT DEPARTURE: 12/01/19 17:55 Medical Decision Making 69-year-old female with history of left total hip replacement August 2019 with subsequent fracture of the greater trochanter, here with left hip pain that is been waxing and waning over the past 2 months, no new trauma, pain increase over the past 2 to 3 days. Patient does have pain with ranging of the hip. No inflammatory changes overlying hip. Neurologically intact distally. X-ray of the hip was reviewed and interpreted by radiology: IMPRESSION: Stable left hip arthroplasty . No acute fracture or dislocation. Plan for discharge with follow-up orthopedics. Results and plan discussed with patient. Patient understands she should return immediately for any worsening or new concerning symptoms. Medical screening exam was performed and patient was stable. HPI General Mode of arrival: ambulatory. Date/Time Provider Initiated Documentation: 12/01/19 15:31. Limitations to Documentation: no limitations. Information obtained by: patient. HPI Narrative: 69-year-old female with history of left total hip replacement August 2019 with subsequent fracture of the greater trochanter, presents with chief complaint of left hip pain. Patient notes intermittent waxing and waning pain in her left hip over the past few months. Pain has increased over the past day. Pain described as sharp. Pain is worse with certain positions including lying on her hip. She denies new trauma. Denies fever. No inflammation of the hip. Related Data Home Medications Medication Instructions Recorded Confirmed aspirin [Aspirin Low Dose] 1 tab PO DAILY 04/30/14 12/11/19 losartan 100 mg PO HS 04/30/14 12/11/19 nitroglycerin [Nitrostat] 1 tab SUBLINGUAL PRN PRN 04/30/14 12/11/19 atorvastatin 80 mg PO DAILY tab-cap 03/16/15 12/11/19 gabapentin 600 mg PO HS 03/16/15 12/11/19 amlodipine 10 mg tablet 10 mg PO DAILY 07/23/19 12/11/19 Anoro Ellipta 1 inh INHALATION DAILY 08/14/19 12/11/19 trazodone 50 mg PO QHS 08/19/19 12/11/19 oxycodone 5 mg PO BID PRN #10 tab 09/26/19 12/11/19 Previous Rx's Medication Instructions Recorded oxycodone 5 mg PO BID PRN #10 tab 09/26/19 Allergies Allergy/AdvReac Type Severity Reaction Status Date / Time prochlorperazine edisylate AdvReac Intermediate has Unverified 12/11/19 10:30 [From Compazine] extreme energy prochlorperazine maleate AdvReac Intermediate has Unverified 12/11/19 10:30 [From Compazine] extreme energy acetaminophen [From Percocet] AdvReac Mild pt states Verified 12/11/19 10:30 she not have an allerg to this med atenolol AdvReac Mild Verified 12/11/19 10:30 hydrochlorothiazide AdvReac Mild Verified 12/11/19 10:30 hydrocodone [From Vicodin] AdvReac Mild n/v Verified 12/11/19 10:30 lisinopril AdvReac Mild Verified 12/11/19 10:30 oxycodone [From Percocet] AdvReac Mild n/v Verified 12/11/19 10:30 General Stated Complaint: Orthopedic GWYN: 3 Review of Systems Constitutional Constitutional: Denies fever(s) Musculoskeletal Musculoskeletal: Reports as per HPI Integumentary/Breasts Skin/Breast: Denies rash [facility] Medical History (Updated 12/11/19 @ 15:11 by PIPPA Matute) Absent kidney, congenital Anxiety and depression Cigarette smoker 1/2-3/4 PPD Conversion disorder Had left sided weakness in the that improved and slowly resolved after Amytal interview. History of depression and suicide attempt. Coronary arteriosclerosis CVA (cerebral vascular accident) 13 years ago shortly after her LEFT TKA Eustachian tube disorder Fecal incontinence History of chest pain Suspected ID [id number] Hypercholesteremia Hypertension IBS (irritable bowel syndrome) Lesion of eyelid left upper eyelid Migraine history og migraines Neuropathy Obesity ELVIN on CPAP Pt. 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 she will cough a lot Osteoarthritis Raynauds disease Reactive airway disease Renal insufficiency RLS (restless legs syndrome) Senile hyperkeratosis Stress incontinence Stroke 2007, left sided weakness-resolved no deficits Varicose veins of both lower extremities Surgical History History of appendectomy History of carpal tunnel release History of cholecystectomy History of hysterectomy History of knee replacement bilateral History of total left hip replacement (08/19/19) Family History Other Cancer Diabetes Glaucoma Heart disease Hypertension Social History Smoking/Tobacco Use Status: Current every day Tobacco Type: cigarettes Tobacco: How many years used: 60 Quit status: not considering quitting Counseling given: counseling >3 minutes Smoking risk assessment performed?: Yes Alcohol Intake: former Drug use: Never Substance use type: does not use Current gender identity: female Do you feel safe at home: Yes Do you feel safe in your relationship?: Yes Exam Const General: cooperative and no acute distress HENMT Mouth: moist mucous membranes Eyes Conjunctivae: normal conjunctivae Resp Effort & Inspection: normal respiratory effort Cardio Rate: regular rate and not tachycardic Rhythm: regular rhythm Pulses: radial pulses present on the left 2+ GI Palpation: soft, not firm, no guarding, no masses and not rigid Skin General skin exam: no rashes or lesions noted Neuro General: patient alert, patient awake, patient oriented x3 and tone normal Extrem General: edema Left lower extremity: hip/thigh Details: tenderness Location: of the hip Location: laterally; no swelling and no unusual warmth Other: Neuro intact distally Course Vital Signs Vital signs: Vital Signs Temperature 36.8 C 12/01/19 15:33 Pulse 86 12/01/19 15:33 Respiratory Rate 18 12/01/19 15:33 Blood Pressure 179/76 H 12/01/19 15:33 Pulse Oximetry 97 12/01/19 15:33 Temperature 36.8 C 12/01/19 15:33 Pulse 86 12/01/19 15:33 Respiratory Rate 18 12/01/19 15:33 Respiratory Effort Non-Labored 12/01/19 15:36 Blood Pressure 179/76 H 12/01/19 15:33 Blood Pressure Position Sitting 12/01/19 15:33 Pulse Oximetry 97 12/01/19 15:33 Oxygen Delivery Method Room Air 12/01/19 15:33 Oxygen Flow Rate 0 12/01/19 15:33 Pain Level 9 12/01/19 15:37
[2019-12-01] MEDS: traMADol 50 MG TAB PO (15:43)
--- NOTE | 2019-12-01 16:33 | NUR.NOTE ---
Nursing Note: pt visited by
[2019-12-01] MEDS: Lidocaine 5% Patch 1 PATCH TP (17:00)
--- NOTE | 2019-12-01 17:06 | DI.RAD_ITS ---
EXAM: XR HIP LT AP LAT ONLY CLINICAL HISTORY: Pain. TECHNIQUE: 2D digital imaging was performed. COMPARISON: CR XR HIP LT COMPLETE AP PELVIS from 07/01/2019 CR XR PELVIS AP from 08/19/2019 ECG ED EKG from 08/30/[address] ABDOMEN PELVIS W from 08/30/2019 CR XR HIP LT COMPLETE AP PELVIS from 09/03/2019 CR XR PELVIS AP from 10/01/2019 CR XR HIP LT COMPLETE AP PELVIS from 11/12/2019 FINDINGS: BONES: No acute fracture is present. No bony destructive lesion is seen. Again noted is a fracture of the greater trochanter. There has been no change in the total hip prosthesis. JOINTS: No dislocation present. SOFT TISSUE: Normal. IMPRESSION: No acute abnormality. Old greater trochanter fracture. Stable left hip arthroplasty. DATA REPOSITORY: RADIATION DOSE DELIVERED:
--- NOTE | 2019-12-01 17:21 | DI.VRAD_ITS ---
PROCEDURE INFORMATION: Exam: XR Left Hip with Pelvis when Performed Exam date and time: 12/01/2019 5:01 PM Age: 69 years old Clinical indication: Hip pain; Left hip; Prior surgery; Surgery date: 1-6 months TECHNIQUE: Imaging protocol: XR Left hip with pelvis when performed. Views: 2 or 3 views. COMPARISON: CR XR HIP LT COMPLETE AP PELVIS 11/12/2019 9:39 AM FINDINGS: Bones/joints: There is no acute fracture or dislocation. There is stable left hip arthroplasty. There is stable heterotrophic ossification, lateral to arthroplasty hardware which could be sequela of previous surgery. Soft tissues: Unremarkable. IMPRESSION: Stable left hip arthroplasty . No acute fracture or dislocation. Dictated and Authenticated by: Sravan Suarez MD. Ordering:TERRA Reyes MD
[2019-12-01 17:52] VITALS: BP 159/77; PULSE 82; RESP 18; TEMP 36.8; O2SAT 97
== END 2019-12-01 17:55 | disposition home or self-care (01) ==
PROVIDERS: Emergency Provider Student in an Organized Health Care Education/Training Program; PCP Internal Medicine
DX: M25.552 Pain in left hip (principal); Z96.642 Presence of left artificial hip joint; I12.9 Hypertensive chronic kidney disease with stage 1 through stage 4 chronic kidney disease, or unspecified chronic kidney disease; N18.9 Chronic kidney disease, unspecified
CPT/HCPCS: 99283; 73502

== ENCOUNTER → 2019-12-11 10:20 | Outpatient (BNVA) | payer MEDICARE, SELFPAY | PROVIDERS: PCP Internal Medicine; Referring Provider Student in an Organized Health Care Education/Training Program; Visit Provider Orthopaedic Surgery | DX: S72.112K Displaced fracture of greater trochanter of left femur, subsequent encounter for closed fracture with nonunion (principal); X58.XXXD Exposure to other specified factors, subsequent encounter; I10 Essential (primary) hypertension; Z96.642 Presence of left artificial hip joint; R63.4 Abnormal weight loss | CPT/HCPCS: 99213 ==

== ENCOUNTER 2019-12-25 08:20 | Outpatient (REF) | payer MEDICARE, SELFPAY ==
[2019-12-25 23:02] LABS: Anion Gap 7.2 mmol/L (3-11); BUN 14 mg/dL (7-18); CO2 28.8 mmol/L (21.0-32.0); CREATININE 1.22 mg/dL (0.55-1.02); Calcium 8.9 mg/dL (8.5-10.1); Chloride 107 mmol/L (98-107); Glucose 103 mg/dL (74-106); Potassium 3.4 mmol/L (3.5-5.1); Sodium 143 mmol/L (136-145); TSH 1.27 uIU/mL (0.36-3.74); Vitamin B12 314 pg/mL (193-986)
== END 2019-12-25 08:40 ==
LOC: NCHCN 08:20
PROVIDERS: PCP Internal Medicine; Visit Provider Internal Medicine
DX: R41.3 Other amnesia (principal); R25.2 Cramp and spasm
CPT/HCPCS: 80048; 82607; 84443

== ENCOUNTER 2020-02-10 14:04 | Outpatient (CLI) | payer MEDICARE, SELFPAY ==
--- NOTE | 2020-02-10 13:45 | DI.RAD_ITS ---
EXAM: XR HIP LT AP LAT ONLY CLINICAL HISTORY: f/u L greater troch frx. TECHNIQUE: 2D digital imaging was performed. COMPARISON: CR,XR XR HIP LT AP LAT ONLY from 12/01/2019 FINDINGS: Again noted left hip arthroplasty no acute fracture or obvious loosening no radiographic evidence of osteomyelitis. Prominent dystrophic soft tissue calcification off the lateral aspect of prosthesis i s again noted, unchanged. Opposite-right hip appears unremarkable. IMPRESSION: DATA REPOSITORY: RADIATION DOSE DELIVERED:
== END 2020-02-10 14:24 ==
PROVIDERS: PCP Internal Medicine; Referring Provider Internal Medicine; Visit Provider Student in an Organized Health Care Education/Training Program
DX: Z96.642 Presence of left artificial hip joint; S72.112K Displaced fracture of greater trochanter of left femur, subsequent encounter for closed fracture with nonunion; X58.XXXD Exposure to other specified factors, subsequent encounter
CPT/HCPCS: 99213; 73502

== ENCOUNTER → 2020-02-20 12:29 | Outpatient (BNVA) | payer MEDICARE, SELFPAY | PROVIDERS: PCP Internal Medicine; Referring Provider Student in an Organized Health Care Education/Training Program; Visit Provider Nurse Practitioner Adult Health | DX: G56.23 Lesion of ulnar nerve, bilateral upper limbs (principal); I10 Essential (primary) hypertension | CPT/HCPCS: 95910; 99203; 99215; 99417; G2212 ==

== ENCOUNTER 2020-03-09 11:08 | Outpatient (CLI) | payer MEDICARE, SELFPAY | END 2020-03-09 11:28 | PROVIDERS: PCP Internal Medicine; Referring Provider Internal Medicine; Visit Provider Student in an Organized Health Care Education/Training Program | DX: G56.22 Lesion of ulnar nerve, left upper limb (principal); G56.21 Lesion of ulnar nerve, right upper limb; I10 Essential (primary) hypertension; J44.9 Chronic obstructive pulmonary disease, unspecified; F17.210 Nicotine dependence, cigarettes, uncomplicated | CPT/HCPCS: 99214 ==

== ENCOUNTER 2020-03-23 03:43 | Outpatient (CLI) | payer MEDICARE, SELFPAY ==
--- NOTE | 2020-03-23 12:30 | NS.NUTBLAN_ITS ---
Ms. Birch was referred for Medical Nutrition Therapy for gastroparesis. wt: 152 ht: 62 inches BMI:28, reports 60 lbs weight loss in last 6 months due to inability to keep solids down. Recent weight loss (-40%) indicative of severe malnutrition. was present and supportive. Followed by Dr. Estrella, [place], [place]. Ms. Birch reports that she is unable to tolerate most take out foods, meats, chicken and fish, however is able to consume liquids without issue. Diet recall indicates able to tolerate 3 carnation instant breakfast drinks made with whole milk, 2 slices of toast and tomato soup with saltines. She also tried [employer], but it came up. Estimated Needs: 6215-4485 kcal, 55-65 g protein, 30-50 g fat, 64 ounces fluid daily. Food Recall/24 hours: 1100 kcal, 24 g protein, 25 g fat Session today reviewed foods to eat and foods to avoid for gastroparesis. Educational material provided with caption writer's contact info. Goal at this point is to stop vomiting, stop weight loss and meet nutrient and fluid requirements for weight maintenance. Plan at this time is for Ms. Birch to consume 3 carnation instant breakfast packets mixed with whole milk daily. She is encouraged to supplement this with broth, purred soups, creamed soups(drained for solids), purred baby food, white bread with jelly, saltines, jelly beans, jello, pudding, juice and sprite. Explained to Ms. Birch importance of avoiding high fat foods such as most take out/restaurant foods and to avoid most meats/vegetables for a couple of more weeks. Plan: [employer]yl[employer]per will call Ms. Birch in next week and follow up with her po intake, Ms. Birch to weigh self weekly, goal is to keep her weight > 145 lbs. Encouraged Ms. Birch to follow up with Dr. Estrella as recommended.
== END 2020-03-23 03:44 | disposition home or self-care (01) ==
LOC: DS 03:43
PROVIDERS: PCP Internal Medicine; Visit Provider Dietitian, Registered
DX: K31.84 Gastroparesis (principal); Z71.3 Dietary counseling and surveillance
CPT/HCPCS: 97802

== ENCOUNTER 2020-03-27 09:05 | Outpatient (CLI) | payer MEDICARE, SELFPAY ==
[2020-03-28 11:47] LABS: COVID-19 RT-PCR UVMMC Result Negative (Negative)
== END 2020-03-27 09:06 | disposition home or self-care (01) ==
LOC: LBO 10:22
PROVIDERS: PCP Internal Medicine; Visit Provider Student in an Organized Health Care Education/Training Program
DX: Z20.822 Contact with and (suspected) exposure to COVID-19 (principal); Z01.818 Encounter for other preprocedural examination
CPT/HCPCS: U0003; U0005

== ENCOUNTER 2020-04-01 12:46 | Day surgery (SDC) | payer MEDICARE, SELFPAY ==
--- NOTE | 2020-04-01 06:00 | RT.EKG_ITS ---
APPROVED REPORT Exam: Resting ECG Patient Location: O HR:46 bpm ECG Measurements Heart Rate 46 AXIS IN 204 P 56 QRSd 88 QRS 3 QT 427 T 39 QTc 374 Conclusion Sinus bradycardia...rate< 60
--- NOTE | 2020-04-01 07:47 | W.PM.DSUDISC ---
Discharge Plan Disposition Patient Disposition: HOME Condition: Good Discharge Details Reason For Visit: Left cubital tunnel syndrome Attending Provider: Dionisio Limon Primary Care Provider: Edson Hubbard Home Meds and New Rx's Prescriptions: New ibuprofen 600 mg tablet 600 mg PO TID PRN (Reason: pain) Qty: 60 RF: 0 Continued duloxetine 30 mg capsule,delayed release(DR/EC) 30 mg PO DAILY RF: 0 ascorbate calcium (vitamin C) 500 mg tablet 500 mg PO DAILY RF: 0 amlodipine 10 mg tablet 10 mg PO DAILY RF: 0 omega 1-kal-cmb-fish oil 1,000 mg (120 mg-180 mg) capsule 1 cap PO BID RF: 0 Restasis 0.05 % dropperette 1 drp ophthalmic (eye) Q12H RF: 0 atorvastatin 80 MG tablet 80 mg PO DAILY RF: 0 aspirin [Aspirin Low Dose] 81 MG tablet,delayed release (DR/EC) 1 tab PO DAILY RF: 0 nitroglycerin [Nitrostat] 0.4 MG tablet, sublingual 1 tab Sublingual PRN PRNRF: 0 losartan 100 MG tablet 100 mg PO HS RF: 0 Anoro Ellipta 62.5-25 mcg/actuation blister with device 1 inh INHALATION DAILY RF: 0 trazodone 50 mg Tablet 50 mg PO QHS RF: 0 acetaminophen-codeine 300-30 mg tablet 1 tab PO Q6H PRN (Reason: severe pain) Qty: 6 RF: 0 Discharge Instructions Additional Instructions: Cubital Tunnel Decompression Discharge Instructions Activity: You should stay in the sling for the first 2 weeks. You may come out of the sling for gentle motion and hygiene but should largely remain in the sling to allow the incision site to heal. Gentle motion of the elbow, hand, wrist, and fingers is okay and encouraged after the first few days, but no repetitive activities nor heavy lifting. You may apply ice. Medications: - You should take Tylenol and Ibuprofen around the clock. - You have been prescribed an additional few acetaminophen-codeine for breakthrough pain. Dressings: - The initial surgical dressing should stay in place for 3 days. It may then be removed and kept clean and dry. You should cover with a light gauze dressing. - You may shower after 3 days and get the wound wet. Follow-up: 10 days Referrals: Dionisio Limon MD [ [facility] STAFF PHYSICIAN] - Equipment/Supplies: Sling Activity:: Activity as Tolerated Remove Dressings/Wound Care:: 72 hours Shower/Bathe:: 72 hours Diet:: As Tolerated Discharge Orders Discharge Orders: Discharge Order (Routine); Ordered 04/01/20 Ordered By: Daniela Hoffman DS: Diagnosis Discharge Diagnosis (1) Cubital tunnel syndrome on left: Status: Acute
[2020-04-01 12:50] VITALS: BP 145/72; PULSE 53; RESP 17; TEMP 36.7; O2SAT 97
[2020-04-01] MEDS: Lactated Ringers 1,000 ML 80 ML IV (13:50)
[2020-04-01] MEDS: ceFAZolin 2 GM/50 ML BAG IVPB (16:06)
[2020-04-01 17:20] VITALS: BP 148/72; PULSE 63; RESP 18; TEMP 36.2; O2SAT 98
--- NOTE | 2020-04-01 18:57 | ROE_ITS ---
Date of service: 04/01/20 Time of Service: 16:42 Operative Note Operative Note DATE OF PROCEDURE: 04/01/20 PRE-OP DIAGNOSIS: Left Cubital Tunnel Syndrome POST-OP DIAGNOSIS: same PROCEDURE: Left Cubital Tunnel Decompression with Anterior Subcutaneous Transposition SURGEON: Dionisio Limon PART MAKER: Katherine Benavides ANESTHESIA TYPE: General:No Airway Refer to Anesthesia Record ESTIMATED BLOOD LOSS: 5 PATHOLOGY: none sent TOURNIQUET TIME: 20 COMPLICATIONS: None Patient was transported to: PACU Patient's condition: stable Indications: Cailin is a 69yo female who has had symptoms of cubital tunnel syndrome, presenting rather acutely. Nonoperative treatment options had been trialed. Nerve conduction studies identified the cubital tunnel as the point of compression. Given failure of nonoperative treatments and persistent symptoms, I offered operative intervention. I reviewed the technical details of a cubital tunnel decompression with possible anterior subcutaneous transposition. I reviewed the risk of the procedure to include bleeding, infection, pain, stiffness, tendon instability, damage to the superficial radial nerve, and complete release. Despite these risks, the patient elected to proceed. Findings: There was a tightened cubital tunnel at Coker's ligament as well as within the cubital tunnel. The ulnar nerve was release from the first motor branch distally through the [place] proximally. On post-release ran ge of motion, the nerve subluxed over the medial epicondyle and so an anterior subcutaneous transposition was performed. Procedure Description: Cailin was greeted in the preoperative holding area. Name and surgical site were confirmed. The history and physical was completed. The consent was reviewed the patient and signed. She was taken back to the operating room. The patient was placed in the supine positioned and a general anesthetic was administered. The left was then prepped with ChloraPrep and draped in a standard fashion after a nonsterile tourniquet was placed high up into the axilla of the arm. Prophylactic antibiotics in the form of cefazolin were administered. A timeout was performed for safe surgery. The surgical site was drawn on the skin as was the lateral epicondyle borders. The planned surgical field was anesthetized with 0.25% bupivacaine with epinephrine. The limb was exsanguinated and the tourniquet was inflated where it stayed for 20 minutes. A 6 cm incision was made curvilinearly around the medial elbow. The skin was incised only. The deep tissue and subcutaneous fat was dissected with a tenotomy scissors trying to protect any branches of the medial antebrachial cutaneous nerve. Any branches that were identified were retracted out of the way. The ulnar nerve was palpated and identified. A small window into the cubital tunnel, sheath overlying the nerve, was created and the nerve was able to be palpated with the [place]. A Metzenbaum scissor was then used to open up the sheath starting with Coker's ligament. I then worked distal over the ulnar nerve releasing any constraints against the nerve all the way to the fascia of the FCU muscle belly. This muscle belly was bluntly all the way down to the first motor branch of the ulnar nerve and the overlying fascia was incised. Likewise starting there at the lateral epicondyle, I proceeded to work proximally to release any constraints over the ulnar nerve. This was taken all the way to the arcade of [place]. The medial intermuscular septum was also palpated and any sharp edges against the ulnar nerve were resected and released. After fully releasing the nerve it was inspected visually. I was also able to palpate the nerve fully and reach one finger up into the proximal and distal aspects to make sure there were no constraints against the nerve. A freer elevator was also used to slide easily against the ulnar nerve without any points of constriction. The arm was then taken through range of motion. The ulnar nerve did sublux/dislocate out of its groove behind the medial epicondyle. Therefore, an anterior subcutaneous transposition was performed. The ulnar nerve was then gently elevated off of its undersurface. While trying to keep vascularity with the nerve the soft tissue adherent to the deep side of the nerve was released slowly with scissors. This allowed the nerve to move anteriorly freely. With it moved anterior to the medial epicondyles I then checked both distal and proximal aspects to make sure there is no kinking. On the distal aspect there was some abutment to the muscle itself but no ridge of fascia or any sharp constraint against the nerve. A portion of the median intermuscular septum was also released more fully to decrease any pressure against the ulnar nerve. I then elevated a flap of fascial tissue from the flexor pronator mass origin. This was resected all the way to the edge of the medial epicondyle. The nerve was then transposed anteriorly on top of the flexor pronator mass. Using a 0 Vicryl I approximated the fascial mass to the dermis underlying the location of the medial epicondyle. 2 sutures were placed which created a sling preventing posterior subluxation of the nerve. A [place] elevator was ran along the length of the nerve and had no signs of compression or tethering of the nerve within this new transposed place. The elbow was taken through range of motion and the nerve remained in anterior position without any other signs of compression proximally or distally. The tourniquet was then deflated. Any areas of bleeding were cauterized with bipolar electrocautery. The wound was thoroughly irrigated. The deep tissue was closed with a 3-0 Vicryl. The skin was closed with a 4-0 nylon. The wound was dressed with Xeroform, 4 x 4's, ABD, Kerlix and an Brayden wrap. Cailin was placed into a sling. She was transferred back to the same day surgery area in a stable condition.
== END 2020-04-01 17:44 | disposition home or self-care (01) ==
LOC: SUR 12:47
PROVIDERS: PCP Internal Medicine; Visit Provider Student in an Organized Health Care Education/Training Program
PROC: (CPT 64718; principal; 2020-04-01 16:15)
DX: G56.22 Lesion of ulnar nerve, left upper limb (principal)
CPT/HCPCS: 64718; J0690; J2001; L3650

== ENCOUNTER → 2020-04-10 10:57 | Outpatient (BNVA) | payer MEDICARE, SELFPAY | PROVIDERS: PCP Internal Medicine; Referring Provider Internal Medicine; Visit Provider Student in an Organized Health Care Education/Training Program | DX: Z47.89 Encounter for other orthopedic aftercare (principal); G56.21 Lesion of ulnar nerve, right upper limb; G56.22 Lesion of ulnar nerve, left upper limb ==

== ENCOUNTER 2020-04-29 09:16 | Day surgery (SDC) | payer MEDICARE, SELFPAY ==
[2020-04-29 09:29] VITALS: BP 147/70; PULSE 52; RESP 16; TEMP 36.3; O2SAT 97
[2020-04-29] MEDS: Lactated Ringers 1,000 ML 80 ML IV (10:08)
[2020-04-29] MEDS: ceFAZolin 2 GM/50 ML BAG IVPB (12:39)
--- NOTE | 2020-04-29 13:07 | PDOC.DSDIS_ITS ---
Documented by User: PIPPA Matute 04/29/20 13:18 Discharge Plan Disposition Patient Disposition: HOME Condition: Good Discharge Details Reason For Visit: Right ulnar nerve transposition Attending Provider: Dionisio Limon Primary Care Provider: Edson Hubbard Home Meds and New Rx's Prescriptions: New acetaminophen 500 mg capsule 1,000 mg PO Q8H PRN PRNQty: 90 RF: 0 ibuprofen 600 mg tablet 600 mg PO TID PRN (Reason: pain) Qty: 30 RF: 0 acetaminophen-codeine 300-30 mg tablet 1 tab PO Q8H PRN (Reason: pain) Qty: 6 RF: 0 Continued duloxetine 30 mg capsule,delayed release(DR/EC) 30 mg PO HS RF: 0 ascorbate calcium (vitamin C) 500 mg tablet 500 mg PO DAILY RF: 0 amlodipine 10 mg tablet 10 mg PO HS RF: 0 omega 0-wom-gxg-fish oil 1,000 mg (120 mg-180 mg) capsule 1 cap PO BID RF: 0 Restasis 0.05 % dropperette 1 drp ophthalmic (eye) Q12H RF: 0 atorvastatin 80 MG tablet 80 mg PO HS RF: 0 aspirin [Aspirin Low Dose] 81 MG tablet,delayed release (DR/EC) 1 tab PO DAILY RF: 0 nitroglycerin [Nitrostat] 0.4 MG tablet, sublingual 1 tab Sublingual PRN PRNRF: 0 losartan 100 MG tablet 100 mg PO HS RF: 0 Anoro Ellipta 62.5-25 mcg/actuation blister with device 1 inh INHALATION DAILY RF: 0 trazodone 50 mg Tablet 50 mg PO QHS RF: 0 acetaminophen-codeine 300-30 mg tablet 1 tab PO Q6H PRN (Reason: severe pain) Qty: 6 RF: 0 Discontinued ibuprofen 600 mg tablet 600 mg PO TID PRN (Reason: pain) Qty: 60 RF: 0 Discharge Instructions Additional Instructions: Cubital Tunnel Decompression Discharge Instructions Activity: You should stay in the sling for the first 2 weeks. You may come out of the sling for gentle motion and hygiene but should largely remain in the sling to allow the incision site to heal. Gentle motion of the elbow, hand, wrist, and fingers is okay and encouraged after the first few days, but no repetitive activites nor heavy lifting. You may apply ice. Medications: - You should take Tylenol and Ibuprofen around the clock. - You have been prescribed an additional few acetaminophen-codeine for breakthrough pain. Dressings: - The initial surgical dressing should stay in place for 3 days. It may then be removed and kept clean and dry. You should cover with a light gauze dressing. - You may shower after 3 days and get the wound wet. Follow-up: 10 days Referrals: Dionisio Limon MD [ [facility] STAFF PHYSICIAN] - Equipment/Supplies: Sling Activity:: Elevate Remove Dressings/Wound Care:: 72 hours Shower/Bathe:: 72 hours Diet:: As Tolerated Discharge Orders Discharge Orders: Discharge Order (Routine); Ordered 04/29/20 Ordered By: Dakotah Mcknight DS: Diagnosis Discharge Diagnosis (1) Cubital tunnel syndrome on right: Status: Acute Documented by User: Dionisio Limon MD 04/29/20 13:54 Discharge Plan Disposition Patient Disposition: HOME Condition: Good Discharge Details Reason For Visit: Right ulnar nerve transposition Attending Provider: Dionisio Limon Primary Care Provider: Edson Hubbard [place] Meds and New Rx's Prescriptions: New acetaminophen 500 mg capsule 1,000 mg PO Q8H PRN PRNQty: 90 RF: 0 ibuprofen 600 mg tablet 600 mg PO TID PRN (Reason: pain) Qty: 30 RF: 0 acetaminophen-codeine 300-30 mg tablet 1 tab PO Q8H PRN (Reason: pain) Qty: 6 RF: 0 Continued duloxetine 30 mg capsule,delayed release(DR/EC) 30 mg PO HS RF: 0 ascorbate calcium (vitamin C) 500 mg tablet 500 mg PO DAILY RF: 0 amlodipine 10 mg tablet 10 mg PO HS RF: 0 omega 8-eut-qlj-fish oil 1,000 mg (120 mg-180 mg) capsule 1 cap PO BID RF: 0 Restasis 0.05 % dropperette 1 drp ophthalmic (eye) Q12H RF: 0 atorvastatin 80 MG tablet 80 mg PO HS RF: 0 aspirin [Aspirin Low Dose] 81 MG tablet,delayed release (DR/EC) 1 tab PO DAILY RF: 0 nitroglycerin [Nitrostat] 0.4 MG tablet, sublingual 1 tab Sublingual PRN PRNRF: 0 losartan 100 MG tablet 100 mg PO HS RF: 0 Anoro Ellipta 62.5-25 mcg/actuation blister with device 1 inh INHALATION DAILY RF: 0 trazodone 50 mg Tablet 50 mg PO QHS RF: 0 acetaminophen-codeine 300-30 mg tablet 1 tab PO Q6H PRN (Reason: severe pain) Qty: 6 RF: 0 Discontinued ibuprofen 600 mg tablet 600 mg PO TID PRN (Reason: pain) Qty: 60 RF: 0 Discharge Instructions Additional Instructions: Cubital Tunnel Decompression Discharge Instructions Activity: You should stay in the sling for the first 2 weeks. You may come out of the sling for gentle motion and hygiene but should largely remain in the sling to allow the incision site to heal. Gentle motion of the elbow, hand, wrist, and fingers is okay and encouraged after the first few days, but no repetitive activites nor heavy lifting. You may apply ice. Medications: - You should take Tylenol and Ibuprofen around the clock. - You have been prescribed an additional few acetaminophen-codeine for breakthrough pain. Dressings: - The initial surgical dressing should stay in place for 3 days. It may then be removed and kept clean and dry. You should cover with a light gauze dressing. - You may shower after 3 days and get the wound wet. Follow-up: 10 days Referrals: Dionisio Limon MD [ [facility] STAFF PHYSICIAN] - Equipment/Supplies: Sling Activity:: Elevate Remove Dressings/Wound Care:: 72 hours Shower/Bathe:: 72 hours Diet:: As Tolerated Discharge Orders Discharge Orders: Discharge Order (Routine); Ordered 04/29/20 Ordered By: Dakotah Mcknight
[2020-04-29 13:35] VITALS: BP 106/44; PULSE 56; RESP 17; TEMP 36.1; O2SAT 100
[2020-04-29 13:40] VITALS: BP 104/37; PULSE 50; RESP 18; TEMP 36.1; O2SAT 96
[2020-04-29 13:45] VITALS: BP 101/51; PULSE 51; RESP 16; TEMP 36.1; O2SAT 96
--- NOTE | 2020-04-29 13:54 | W.PM.OP ---
Date of service: 04/29/20 Time of Service: 13:54 Operative Note Operative Note DATE OF PROCEDURE: 04/29/20 PRE-OP DIAGNOSIS: Right Cubital Tunnel Syndrome POST-OP DIAGNOSIS: same PROCEDURE: Right Cubital Tunnel Decompression with Anterior Subcutaneous Transposition SURGEON: Dionisio Limon ANESTHESIA TYPE: General:No Airway Refer to Anesthesia Record ESTIMATED BLOOD LOSS: 0 PATHOLOGY: none sent TOURNIQUET TIME: 24 COMPLICATIONS: None Patient was transported to: PACU Patient's condition: stable Indications: Cailin is a 69 year old female who has had symptoms of cubital tunnel syndrome. Nonoperative treatment options had been trialed. Nerve conduction studies identified the cubital tunnel as the point of compression. Given failure of nonoperative treatments and persistent symptoms, I offered operative intervention. I reviewed the technical details of a cubital tunnel decompression with possible anterior subcutaneous transposition. I reviewed the risk of the procedure to include bleeding, infection, pain, stiffness, tendon instability, damage to the superficial radial nerve, and complete release. Despite these risks, the patient elected to proceed. Findings: There was a tightened cubital tunnel with an epitrochlearis muscle within the cubital tunnel. The ulnar nerve was release from the first motor branch distally through the [place] proximally. The nerve subluxed from behind the medial epicondyle and was therefore transposed. Procedure Description: Cailin was greeted in the preoperative holding area. Name and surgical site were confirmed. The history and physical was completed. The consent was reviewed the patient and signed. She was taken back to the operating room. The patient was placed in the supine positioned and a general anesthetic was administered. The right was then prepped with ChloraPrep and draped in a standard fashion after a nonsterile tourniquet was placed high up into the axilla of the arm. Prophylactic antibiotics in the form of cefazolin were administered. A timeout was performed for safe surgery. The surgical site was drawn on the skin as was the medial epicondyle borders. The planned surgical field was anesthetized with 1% lidocaine with epinephrine. The limb was exsanguinated and the tourniquet was inflated where it stayed for 24 minutes. A 6 cm incision was made curvilinearly around the medial elbow. The skin was incised only. The deep tissue and subcutaneous fat was dissected with a tenotomy scissors trying to protect any branches of the medial antebrachial cutaneous nerve. Any branches that were identified were retracted out of the way. The ulnar nerve was palpated and identified. A small window into the cubital tunnel, sheath overlying the nerve, was created and the nerve was able to be palpated with the [place]. A Metzenbaum scissor was then used to open up the sheath starting with Coker's ligament. There was an epitrochlearis muscle identified within the cubital tunnel, similar to the other side. This was incised. I then worked distal over the ulnar nerve releasing any constraints against the nerve all the way to the fascia of the FCU muscle belly. This muscle belly was bluntly all the way down to the first motor branch of the ulnar nerve and the overlying fascia was incised. Likewise starting there at the lateral epicondyle, I proceeded to work proximally to release any constraints over the ulnar nerve. This was taken all the way to the arcade of [place]. The medial intermuscular septum was also palpated and any sharp edges against the ulnar nerve were resected and released. After fully releasing the nerve it was inspected visually. I was also able to palpate the nerve fully and reach one finger up into the proximal and distal aspects to make sure there were no constraints against the nerve. A freer elevator was also used to slide easily against the ulnar nerve without any points of constriction. The arm was then taken through range of motion. The ulnar nerve did sublux/dislocate out of its groove behind the medial epicondyle. The nerve was not fully released circumferentially. It was marked with a vessel loop. It was moved anteriorly and any connections to his undersurface were released. Vasculature was kept with the nerve if possible. A portion of the medial intermuscular septum was also released as there is a section pushing against the nerve. The nerves and easily moved anteriorly and there is no spot of compression proximally or distally. I then elevated a flap of tissue from the flexor pronator mass origin of the medial condyle. Branch of the medial antebrachial cutaneous nerve was protected and then this flap was sewed to the deep dermal layer overlying the medial condyle with 0 Vicryl. This created a sling to prevent posterior subluxation. [place] was placed against the nerve and easily moved back and forth without any points of compression identified. The tourniquet was then deflated. Any areas of bleeding were cauterized with bipolar electrocautery. The wound was thoroughly irrigated. The deep tissue was closed with a 3-0 Vicryl. The skin was closed with a 4-0 nylon. The wound was dressed with Xeroform, 4 x 4's, ABD, Kerlix and an Brayden wrap. Cailin was placed into a sling. She was transferred back to the PACU in a stable condition.
[2020-04-29 14:25] VITALS: BP 112/53; PULSE 456; RESP 16; TEMP 36.7; O2SAT 98
== END 2020-04-29 14:50 | disposition home or self-care (01) ==
PROVIDERS: PCP Internal Medicine; Visit Provider Student in an Organized Health Care Education/Training Program
PROC: (CPT 64718; principal; 2020-04-29 14:00)
DX: G56.21 Lesion of ulnar nerve, right upper limb (principal); F17.210 Nicotine dependence, cigarettes, uncomplicated; K21.9 Gastro-esophageal reflux disease without esophagitis; G40.909 Epilepsy, unspecified, not intractable, without status epilepticus; N18.30 Chronic kidney disease, stage 3 unspecified
CPT/HCPCS: 64718; J0690; J2405

== ENCOUNTER → 2020-05-15 10:12 | Outpatient (BNVA) | payer MEDICARE, SELFPAY | PROVIDERS: PCP Internal Medicine; Referring Provider Internal Medicine; Visit Provider Student in an Organized Health Care Education/Training Program | DX: Z47.89 Encounter for other orthopedic aftercare (principal) ==

== ENCOUNTER 2020-05-19 16:56 | Outpatient (REF) | payer MEDICARE, SELFPAY ==
[2020-05-21 14:37] LABS: Helicobacter pylori Ag, Feces Negative (Negative)
== END 2020-05-19 16:57 | disposition home or self-care (01) ==
LOC: NCHCN 16:56
PROVIDERS: PCP Internal Medicine; Visit Provider Internal Medicine
DX: K29.60 Other gastritis without bleeding (principal)
CPT/HCPCS: 87338

== ENCOUNTER → 2020-06-15 08:14 | Outpatient (BNVA) | payer MEDICARE, SELFPAY | PROVIDERS: PCP Internal Medicine; Referring Provider Internal Medicine; Visit Provider Student in an Organized Health Care Education/Training Program | DX: Z47.89 Encounter for other orthopedic aftercare (principal) ==

== ENCOUNTER 2020-08-26 02:22 | Outpatient (CLI) | payer MEDICARE, SELFPAY ==
--- NOTE | 2020-08-26 | DI.CTLCSR_ITS ---
Exam(s) CT CHEST LUNG CANCER SCREEN EXAM: CT CHEST LUNG CANCER SCREEN CLINICAL HISTORY: SCREENING FOR CA, CURRENT SMOKER,F17.210. TECHNIQUE: Imaging Protocol: Low Dose Technique CONTRAST MATERIAL: None COMPARISON: CT CHEST FOR PULMONARY EMBOLUS from 05/23/2011 FINDINGS: CHEST: LUNGS: There are no ominous pulmonary nodules. There are no confluent infiltrates. No pleural effusi ons. MEDIASTINUM: There is no obvious hilar nor mediastinal adenopathy. CARDIAC: Mild cardiomegaly. No pericardial effusioncaliber of the thoracic aorta is within normal li mits. OTHER: Left kidney is not seen. There are nodules in both adrenal glands. Gallbladder surgically ab sent. OSSEOUS: No significant osseous lesions.Nonunion right 6 nonacute rib fracture noted.. IMPRESSION: 1. No significant pulmonary findings. No pleural effusions nor intrathoracic adenopathy evident. 2. Bilateral adrenal nodules. Left kidney not seen. 3. Lung RADS Cat 1 - Negative: No nodules and definitely benign nodules Other findings as above. Lung-RADS 1.0 CATEGORIES: Category 0 - Prior chest CT exam(s) being located for comparison. Category 1 - Annual screening in 12 months. No nodules or definitely benign nodules. Category 2 - Annual screening in 12 months. Benign appearance. Nodules with low likelihood of becomin g active cancer. Category 3 - 6-month follow-up. Probably benign. Short-term follow-up suggested. Nodules with low lik elihood of becoming active cancer. Category 4A - 3-month follow-up and CT/PET if >8 mm in size. Suspicious finding. Findings which requi re additional testing. Category 4B - Findings which require additional testing and tissue sampling. Modifier S- Potentially clinically significant findings (non lung cancer) RADIATION DOSE DELIVERED: 63.45mGy.cm Total DLP 1.56mGy CTDIvol DATA REPOSITORY: All CT scans at this facility are submitted to the National Radiology Data Registry (NRDR) Dose Index Registry (DIR) with the [employer] (ACR). RADIATION OPTIMIZATION: All CT scans at this facility use at least one of these dose optimization te chniques: automated exposure control; mA and/or kV adjustment per patient size (includes targeted exa ms where dose is matched to clinical indication); or iterative reconstruction.
== END 2020-08-26 02:42 ==
PROVIDERS: PCP Internal Medicine; Visit Provider Internal Medicine
DX: Z12.2 Encounter for screening for malignant neoplasm of respiratory organs (principal); E27.8 Other specified disorders of adrenal gland; F17.210 Nicotine dependence, cigarettes, uncomplicated
CPT/HCPCS: 71271

== ENCOUNTER 2020-12-03 22:26 | Outpatient (REF) | payer MEDICARE, SELFPAY ==
[2020-12-03 22:49] LABS: Bilirubin Negative (Negative); Blood Negative (Negative); Clarity Clear (Clear); Glucose Negative (Negative); Ketones 15 mg/dL (Negative); Leukocyte Esterase Negative (Negative); Nitrite Negative (Negative); Specific Gravity >= 1.030 (1.005-1.025); Urobilinogen 0.2 EU/dL (Up TO 0.2); pH 5.5 (5-8)
[2020-12-03 23:12] LABS: Bacteria Negative HPF (Negative); C & S Indicated? Yes; Casts Negative LPF (Negative); Crystals Negative HPF (Negative); Epithelial Cells Negative HPF (Negative); Mucus Negative (Negative); Other Cells Negative (Negative); RBC 0-2 HPF (0-2)
== END 2020-12-03 22:27 | disposition home or self-care (01) ==
LOC: NCHCN 22:26
PROVIDERS: PCP Internal Medicine; Visit Provider Nurse Practitioner Family
DX: R35.0 Frequency of micturition (principal)
CPT/HCPCS: 81003; 81015; 87086

== ENCOUNTER 2020-12-29 14:43 | Outpatient (REF) | payer MEDICARE, SELFPAY ==
[2020-12-29 21:32] LABS: HCT 39.7 % (36.0-46.0); HGB 13.4 g/dL (11.2-15.7); MCH 34.3 pg (27.0-33.0); MCHC 33.8 % (32.0-36.0); MCV 101.5 fL (80-95); MPV 10.2 fL (8.0-11.0); Platelet Count 216 10^3/uL (130-400); RBC 3.91 10^6/uL (3.93-5.22); RDW 13.5 % (11.7-14.6); RDW-SD 50.5 fL; WBC 6.35 10^3/uL (4.4-10.8)
[2020-12-29 21:54] LABS: Anion Gap 10.1 mmol/L (3-11); BUN 16 mg/dL (7-18); CO2 27.9 mmol/L (21.0-32.0); CREATININE 1.2 mg/dL (0.55-1.02); Calcium 9.2 mg/dL (8.5-10.1); Chloride 108 mmol/L (98-107); Estimated GFR 44.41 (mL/min/1.73m2); Glucose 84 mg/dL (74-106); Potassium 4.3 mmol/L (3.5-5.1); Sodium 146 mmol/L (136-145)
== END 2020-12-29 14:44 | disposition home or self-care (01) ==
LOC: NCHCN 14:43
PROVIDERS: PCP Internal Medicine; Visit Provider Internal Medicine
DX: I10 Essential (primary) hypertension (principal); N18.9 Chronic kidney disease, unspecified; J44.9 Chronic obstructive pulmonary disease, unspecified
CPT/HCPCS: 80048; 85027

== ENCOUNTER 2021-04-19 18:37 | Outpatient (REF) | payer MEDICARE, SELFPAY ==
[2021-04-20 15:30] LABS: COVID-19 RT-PCR UVMMC Result Negative (Negative)
== END 2021-04-19 18:38 | disposition home or self-care (01) ==
LOC: NCHCN 18:37
PROVIDERS: PCP Internal Medicine; Visit Provider Internal Medicine
DX: Z20.822 Contact with and (suspected) exposure to COVID-19 (principal); J06.9 Acute upper respiratory infection, unspecified
CPT/HCPCS: U0003; U0005

== ENCOUNTER 2021-05-06 20:09 | Outpatient (REF) | payer MEDICARE, SELFPAY ==
[2021-05-06 16:05] LABS: HCT 39.4 % (36.0-46.0); MPV 9.8 fL (8.0-11.0); Platelet Count 236 10^3/uL (130-400); RBC 3.94 10^6/uL (3.93-5.22); RDW 13.6 % (11.7-14.6); RDW-SD 50.4 fL; WBC 5.48 10^3/uL (4.4-10.8)
[2021-05-06 16:08] LABS: Anion Gap 7.6 mmol/L (3-11); BUN 24 mg/dL (7-18); CO2 29.4 mmol/L (21.0-32.0); CREATININE 1.6 mg/dL (0.55-1.02); Calcium 9.2 mg/dL (8.5-10.1); Chloride 105 mmol/L (98-107); Estimated GFR 31.87 (mL/min/1.73m2); Folate 12.3 ng/mL (8.6-20.0); Glucose 97 mg/dL (74-106); Magnesium 2.1 mg/dL (1.8-2.4); Potassium 4.3 mmol/L (3.5-5.1); Sodium 142 mmol/L (136-145); Vitamin B12 251 pg/mL (193-986)
== END 2021-05-06 20:10 | disposition home or self-care (01) ==
LOC: NCHCN 20:09
PROVIDERS: PCP Internal Medicine; Visit Provider Internal Medicine
DX: R55 Syncope and collapse (principal); I10 Essential (primary) hypertension; N18.9 Chronic kidney disease, unspecified; R35.0 Frequency of micturition
CPT/HCPCS: 80048; 85027; 82607; 82746; 83735

== ENCOUNTER 2021-07-02 08:53 | Outpatient (CLI) | payer MEDICARE, SELFPAY ==
--- NOTE | 2021-07-02 09:01 | DI.RAD_ITS ---
Exam(s) XR HIP LT AP LAT ONLY EXAM: XR HIP LT AP LAT ONLY CLINICAL HISTORY: pain. TECHNIQUE: 2D digital imaging was performed. Two images were obtained. AP and lateral views were ob tained. COMPARISON: CR XR HIP LT AP LAT ONLY from 02/10/2020 FINDINGS: BONES: There are stable post operative changes present. No fracture or dislocation. JOINTS: The orthopedic hardware is in good position. SOFT TISSUE: Atherosclerosis. IMPRESSION: Stable postoperative changes. DATA REPOSITORY: RADIATION DOSE DELIVERED:
== END 2021-07-02 08:54 | disposition home or self-care (01) ==
LOC: DIORS 08:55
PROVIDERS: PCP Internal Medicine; Referring Provider Internal Medicine; Visit Provider Physician Assistant Surgical
DX: Z96.642 Presence of left artificial hip joint (principal); S72.112A Displaced fracture of greater trochanter of left femur, initial encounter for closed fracture; X58.XXXA Exposure to other specified factors, initial encounter
CPT/HCPCS: 20610; 73502; J1040

== ENCOUNTER → 2021-08-20 07:49 | Outpatient (BNVA) | payer MEDICARE, SELFPAY | PROVIDERS: PCP Internal Medicine; Referring Provider Internal Medicine; Visit Provider Student in an Organized Health Care Education/Training Program | DX: S72.112D Displaced fracture of greater trochanter of left femur, subsequent encounter for closed fracture with routine healing (principal); X58.XXXD Exposure to other specified factors, subsequent encounter; F17.210 Nicotine dependence, cigarettes, uncomplicated; M70.62 Trochanteric bursitis, left hip | CPT/HCPCS: 99212 ==

== ENCOUNTER → 2021-09-22 02:10 | Outpatient (CLI) | payer MEDICARE, SELFPAY ==
--- NOTE | 2021-09-22 08:32 | DI.CTLCSR_ITS ---
Exam(s) CT CHEST LUNG CANCER SCREEN EXAM: CT CHEST LUNG CANCER SCREEN CLINICAL HISTORY: [employer], F17.210, SCREENING FOR LUNG CA TECHNIQUE: CT examination of the chest was performed utilizing low-dose lung cancer screening protoc ol. COMPARISON: CT CT CHEST LUNG CANCER SCREEN from 08/26/2020 FINDINGS: Images obtained through the upper abdomen show unremarkable appearance of visualized portions of the liver and spleen. Note is made of coronary artery calcification. There is no mediastinal or hilar adenopathy. Mediastinal vascular structures appear intact by noncon trast criteria. Tracheobronchial tree appears intact. No pleural effusion or pleural-based mass. The lungs are predominantly clear, there are scattered very tiny noncalcified intrapulmonary nodules, the largest in the right lower lobe measuring 2-3 millimeters in diameter period. IMPRESSION: Lung RADS Cat 2 - Benign Appearance / Behavior: Nodules with a very low likelihood of becoming a cli nically active cancer due to size or lack of growth Continue annual screening with LDCT in 12 months. Lung-RADS 1.0 CATEGORIES: Category 0 - Prior chest CT exam(s) being located for comparison. Category 1 - Annual screening in 12 months. No nodules or definitely benign nodules. Category 2 - Annual screening in 12 months. Benign appearance. Nodules with low likelihood of becomin g active cancer. Category 3 - 6-month follow-up. Probably benign. Short-term follow-up suggested. Nodules with low lik elihood of becoming active cancer. Category 4A - 3-month follow-up and CT/PET if >8 mm in size. Suspicious finding. Findings which requi re additional testing. Category 4B - Findings which require additional testing and tissue sampling. Suspicious finding. Category 4X - Category 3 or 4 nodules with additional features or imaging findings that increases the suspicion of malignancy. Modifier S- Potentially clinically significant finding. (Non lung cancer) RADIATION DOSE DELIVERED: 75.63mGy.cm Total DLP 1.84mGy CTDIvol 75.63mGy.cm Total DLP !Error CTDIvol DATA REPOSITORY: All CT scans at this facility are submitted to the National Radiology Data Registry (NRDR) Dose Index Registry (DIR) with the [employer] ([employer]). RADIATION OPTIMIZATION: All CT scans at this facility use at least one of these dose optimization te chniques: automated exposure control; mA and/or kV adjustment per patient size (includes targeted exa ms where dose is matched to clinical indication); or iterative reconstruction.
== END ==
PROVIDERS: PCP Internal Medicine; Visit Provider Internal Medicine
DX: F17.210 Nicotine dependence, cigarettes, uncomplicated (principal); Z12.2 Encounter for screening for malignant neoplasm of respiratory organs
CPT/HCPCS: 71271

== ENCOUNTER → 2021-09-30 11:48 | Outpatient (BNVA) | payer MEDICARE, SELFPAY | PROVIDERS: PCP Internal Medicine; Referring Provider Internal Medicine; Visit Provider Student in an Organized Health Care Education/Training Program | DX: M70.62 Trochanteric bursitis, left hip | CPT/HCPCS: 20610; J1040 ==

== ENCOUNTER → 2021-10-14 04:13 | Outpatient (CLI) | payer MEDICARE, SELFPAY ==
--- NOTE | 2021-10-14 13:36 | DI.RAD_ITS ---
Exam(s) RF JOINT INJECTION FLUORO GUID EXAM: RF JOINT INJECTION FLUORO GUID CLINICAL HISTORY: R HIP INJ, RT HIP PAIN, M25.551 TECHNIQUE: 2D and realtime digital imaging was performed. COMPARISON: No exams were available for comparison FINDINGS: Fluoroscopy was utilized by Dr. Limon during hip injection. Hard copy shows right hip injection. IMPRESSION: RADIATION DOSE DELIVERED: magdalena Mendoza= 0.44 mGy Total DLP
--- NOTE | 2021-10-14 15:13 | W.PROCNOTE ---
Date of service: 10/14/21 Time of Service: 13:40 Procedure Note Date of procedure: 10/14/21 Procedure: Right Hip Injection with Fluoroscopic Guidance Surgeon/Proceduralist/Physician: Dionisio Limon Procedure Diagnosis: Right Hip Osteoarthritis Procedure Indications: Cailin has had persistent pain of the RIGHT hip and groin. Noninvasive measures have been tried. To serve as both diagnostic and therapeutic, an injection under fluoroscopy was recommended. I had discussed the risks of the procedure and the patient elected to proceed. Procedure Description: Cailin was greeted in the flouroscopy room. The correct side was identified and the consent was reviewed with the patient and signed. The patient was then placed in the supine position on the fluoroscopy table. The RIGHT hip was then prepped with Chloraprep. The anterolateral injection starting point was identiifed by bony landmarks and fluoroscopy. The skin and soft tissue in the tract of the injection was anesthetized with 1% Lidocaine. A spinal needle was then inserted deep into the hip joint at the level of the lateral femoral neck under fluoroscopic guidance. A small amount of Omnipaque solution was injected to confirm intraarticular placement. Once confirmed, the hip was injected with 6cc of 0.5% Bupivicaine and 80mg of Depo-Medrol. A bandaid was placed on the injection site. The patient tolerated the procedure well and noted improvement in pre-injection pain.
[2021-10-14] MEDS: Omnipaque 300 MG/ML 10 ML BTL IJ (15:24)
[2021-10-14] MEDS: methylPREDNISolone ACETATE 80 MG/ML VIAL IM (15:25)
[2021-10-14] MEDS: Bupivacaine 0.5% Pres-Free 10 ML VIAL 5 ML IJ (15:25)
== END ==
PROVIDERS: PCP Internal Medicine; Visit Provider Student in an Organized Health Care Education/Training Program
DX: M25.551 Pain in right hip (principal)
CPT/HCPCS: 20610; 77002; J1040

== ENCOUNTER 2021-12-06 11:29 | Outpatient (REF) | payer MEDICARE, SELFPAY ==
[2021-12-06 16:01] LABS: Anion Gap 10.8 mmol/L (3-11); BUN 22 mg/dL (7-18); CO2 27.2 mmol/L (21.0-32.0); CREATININE 1.6 mg/dL (0.55-1.02); Calcium 9.1 mg/dL (8.5-10.1); Calculated LDL 37 mg/dL (<100); Chloride 102 mmol/L (98-107); Cholesterol 124 mg/dL (<200); Estimated GFR 34.27 (mL/min/1.73m2); Glucose 96 mg/dL (74-106); HDL Cholesterol 63 mg/dL (40-60); Potassium 3.5 mmol/L (3.5-5.1); Sodium 140 mmol/L (136-145); Triglyceride 123 mg/dL (<150)
== END 2021-12-06 11:30 | disposition home or self-care (01) ==
LOC: NCHCN 11:29
PROVIDERS: PCP Internal Medicine; Visit Provider Internal Medicine
DX: I10 Essential (primary) hypertension (principal); I63.9 Cerebral infarction, unspecified; N18.9 Chronic kidney disease, unspecified
CPT/HCPCS: 80048; 80061

== ENCOUNTER 2022-03-25 13:55 | Emergency (ER) | payer MEDICARE, SELFPAY ==
[2022-03-25] VITALS (20 sets, daily range): BP systolic 121–157; BP diastolic 56–109; PULSE 52–71; RESP 13–27; TEMP 36.7; O2SAT 92–97
--- NOTE | 2022-03-25 13:45 | RT.EKG_ITS ---
APPROVED REPORT Exam: Resting ECG Reason for Exam: Dizziness Patient Location: E HR:68 bpm ECG Measurements Heart Rate 68 AXIS [place] 181 P 50 QRSd 90 QRS -4 QT 390 T 67 QTc 407 Conclusion Sinus rhythm...normal P axis, V-rate 60- 99 Ventricular premature complex...V complex w/ short R-R interval I have reviewed and interpreted ECG and agree with software generated interpretation. There are no significant changes compared to prior EKG performed on 04/01/2020 at 13:25.
[2022-03-25 14:36] LABS: Abs Immature Grans 0.02 10^3/uL (0.0-0.06); Absolute Basophil Count 0.04 10^3/uL (0.0-0.2); Absolute Eosinophil Count 0.06 10^3/uL (0.0-0.7); Absolute Lymphocyte Count 1.56 10^3/uL (1.2-3.4); Absolute Monocyte Count 0.58 10^3/uL (0.1-0.8); Absolute Neutrophil Count 3.29 10^3/uL (1.2-6.7); Basophils % 0.7; Eosinophils % 1.1; HCT 38.6 % (36.0-46.0); HGB 13.3 g/dL (11.2-15.7); Immature Grans % 0.4; Lymphocytes % 28.1; MCH 34.5 pg (27.0-33.0); MCHC 34.5 % (32.0-36.0); MCV 100 fL (80-95); MPV 9.1 fL (8.0-11.0); Monocytes % 10.5; Neutrophils % 59.2; Platelet Count 215 10^3/uL (130-400); RBC 3.85 10^6/uL (3.93-5.22); RDW 12.7 % (11.7-14.6); RDW-SD 46.8 fL; WBC 5.55 10^3/uL (4.4-10.8)
--- NOTE | 2022-03-25 14:47 | ED.GENADUL_ITS ---
Discharge Plan Disposition Patient Disposition: Home Discharge Details Clinical Impression: Acute UTI, Balance problem Primary Care Provider: Edson Hubbard ED Provider: Aleida Chavez Home Meds and New Rx's Prescriptions: New ciprofloxacin HCl 500 mg tablet 500 mg PO Q12H Qty: 5 0RF Continued duloxetine 30 mg capsule,delayed release(DR/EC) 30 mg PO HS Patient Comments: 04/01/20 Pt denies taking this medication. PG amlodipine 10 mg tablet 10 mg PO HS trazodone 100 mg tablet 100 mg PO QHS PRN torsemide 10 mg tablet 10 mg PO DAILY atorvastatin 80 MG tablet 80 mg PO HS aspirin [Aishwarya Low Dose Aspirin] 81 MG tablet,delayed release (DR/EC) 1 tab PO DAILY nitroglycerin [Nitrostat] 0.4 MG tablet, sublingual 1 tab Sublingual PRN PRN losartan 100 MG tablet 100 mg PO HS Anoro Ellipta 62.5-25 mcg/actuation blister with device 1 inh INHALATION DAILY Patient Comments: INHALE 1 PUFF BY MOUTH ONCE DAILY acetaminophen 500 mg capsule 1,000 mg PO Q8H PRN PRNQty: 90 0RF ibuprofen 600 mg tablet 600 mg PO TID PRN (Reason: pain) Qty: 30 0RF Discharge Instructions Instructions: Urinary Tract Infection in Women (ED) Additional Instructions: Your work-up here was concerning for urinary tract infection. Please encourage hydration. Please take the antibiotics as prescribed. These have been sent to your pharmacy, your next dose is due tomorrow morning. This may be contributing to some of your symptoms. As we discussed, I am concerned that you may also be having another event such as a posterior stroke. We are not able to completely rule this out because of the imaging required in your kidney function. You are choosing to leave rather than be admitted. I encourage you to continue with your aspirin and your blood pressure medication. I also encouraged her to follow-up with your primary care soon as possible, please call Monday morning to schedule follow-up appointment. If you develop any new or increased symptoms please seek care immediately once again. Please try to reduce fall risk, stay with family, usual walker. If you develop any new or worsening symptoms please seek care urgently once again. Referrals: Edson Hubbard MD [Primary Care Provider] - Medical Decision Making <Kimberly Lay NP - Last Filed: 03/25/22 16:13> 71-year-old female with a past medical history of COPD, hypertension, high cholesterol, conversion disorder, eustachian tube disorder, CVA, renal insufficiency, congenital absent kidney, restless leg syndrome, coronary artery disease, anxiety depression presents to the ER with a chief complaint of dizziness, and shaking-like episodes which began yesterday around 2 PM after going grocery shopping. Patient reports that she had couple episodes of just not feeling well while at the grocery store. Came home and had some uncontrollable shaking episodes. She reports that she remained awake and alert and able to talk throughout the episodes. They only last for a few seconds and then stop. She also reports couple episodes of having tunnel vision and feeling as if she is going to pass out which is also since resolved. She does have increased dizziness with head movement or position changes. She is complaining of a right-sided frontal headache left-sided TMJ pain and left ear pain which radiates down her left side of her neck. She denies any ringing or ears. No focal neurodeficits noted. No facial droop. She denies any chest pain shortness of breath. She does report some diarrhea which began today. She was seen at a different local facility prior to arrival and had some blood drawn per patient report. She did leave prior to the completion of the work-up. Work-up ordered including EKG which was done by hourly sales staff upon arrival. CBC, CMP, serial troponins, EKG, urinalysis, proBNP, Labs are noted below, no leukocytosis, sodium potassium within normal limits, BUN 22 creatinine 1.9 GFR is 27.8 patient does have 1 kidney only. Glucose 118 initial troponin less than 50, urinalysis is pending at this time. CT a brain and neck changed to CT head without contrast and carotid ultrasound bilaterally. Meclizine 25 mg p.o. ordered. Care is to be handed off to oncoming provider Aleida DAS pending CT and carotid imaging. Reevaluation and disposition. Medical Records Medical records reviewed: Yes I reviewed the patient's medical records. Lab Data Lab results reviewed: Yes I reviewed the patient's lab results. Labs: Laboratory Tests Range/Units 03/25/22 03/25/22 14:25 14:25 WBC (4.4-10.8) 10^3/uL 5.55 RBC (3.93-5.22) 10^6/uL 3.85 L Hgb (11.2-15.7) g/dL 13.3 Hct (36.0-46.0) % 38.6 MCV (80-95) fL 100 H MCH (27.0-33.0) pg 34.5 H MCHC (32.0-36.0) % 34.5 RDW (11.7-14.6) % 12.7 Plt Count (130-400) 10^3/uL 215 MPV (8.0-11.0) fL 9.1 Immature Gran % 0.4 Neutrophils % 59.2 Lymphocytes % 28.1 Monocytes % 10.5 Eosinophils % 1.1 Basophils % 0.7 Nucleated RBC % (0.0-0.3) % 0.0 Absolute Neutrophils (1.2-6.7) 10^3/uL 3.29 Absolute Lymphocytes (1.2-3.4) 10^3/uL 1.56 Absolute Monocytes (0.1-0.8) 10^3/uL 0.58 Absolute Eosinophils (0.0-0.7) 10^3/uL 0.06 Absolute Basophils (0.0-0.2) 10^3/uL 0.04 Sodium (136-145) mmol/L 144 Potassium (3.5-5.1) mmol/L 3.8 Chloride (98-107) mmol/L 108 H Carbon Dioxide (21.0-32.0) mmol/L 30.0 Anion Gap (3-11) mmol/L 6.0 BUN (7-18) mg/dL 22 H Creatinine (0.55-1.02) mg/dL 1.9 H Est GFR (CKD-EPI 2020) (mL/min/1.73m2) 27.88 Glucose (74-106) mg/dL 118 H Calcium (8.5-10.1) mg/dL 9.1 Magnesium (1.8-2.4) mg/dL 2.2 Total Bilirubin (0.2-1.0) mg/dL 0.4 AST (15-37) U/L 9 L ALT (14-59) U/L 12 L Alkaline Phosphatase (46-116) U/L 68 Troponin I (<or=60) ng/L < 50 NT-Pro-B Natriuret Pep (<300) pg/mL 167 Total Protein (6.4-8.2) g/dL 6.3 L Albumin (3.4-5.0) g/dL 3.8 <PIPPA Vargas - Last Filed: 03/25/22 18:48> 71-year-old female with a past medical history of COPD, hypertension, high cholesterol, conversion disorder, eustachian tube disorder, CVA, renal insufficiency, congenital absent kidney, restless leg syndrome, coronary artery disease, anxiety depression presents to the ER with a chief complaint of dizziness, and shaking-like episodes which began yesterday around 2 PM after going grocery shopping. Patient reports that she had couple episodes of just not feeling well while at the grocery store. Came home and had some uncontrollable shaking episodes. She reports that she remained awake and alert and able to talk throughout the episodes. They only last for a few seconds and then stop. She also reports couple episodes of having tunnel vision and feeling as if she is going to pass out which is also since resolved. She does have increased dizziness with head movement or position changes. She is complaining of a right-sided frontal headache left-sided TMJ pain and left ear pain which radiates down her left side of her neck. She denies any ringing or ears. No focal neurodeficits noted. No facial droop. She denies any chest pain shortness of breath. She does report some diarrhea which began today. She was seen at a different local facility prior to arrival and had some blood drawn per patient report. She did leave prior to the completion of the work-up. Work-up ordered including EKG which was done by hourly sales staff upon arrival. CBC, CMP, serial troponins, EKG, urinalysis, proBNP, Labs are noted below, no leukocytosis, sodium potassium within normal limits, BUN 22 creatinine 1.9 GFR is 27.8 patient does have 1 kidney only. Glucose 118 initial troponin less than 50, urinalysis is pending at this time. CT a brain and neck changed to CT head without contrast and carotid ultrasound bilaterally. Meclizine 25 mg p.o. ordered. Care is to be handed off to oncoming provider Aleida DAS pending CT and carotid imaging. Reevaluation and disposition. Care transition myself from Elaine Sweet NP. Please see her initial note regarding history, presentation and exam. In brief, patient is a pleasant 71-year-old female presenting today with chief complaint of balance dysfunction. She states that these began yesterday around 2 PM and have been intermittent. States that this does occur some with movement but also when at rest both regard to his body as well as movement of her head. She reports that she has had vertigo in the past and this is not the same as when she had vertigo. She has not had any recent injury. Denies any fevers or chills. States she does have mild headache but nothing significant. Denies any acute visual change. No change in her hearing. Denies any shortness of breath or chest pain. Work-up thus far has been remarkable for GFR of 27. Patient congenitally only has 1 kidney. Not able to undergo a CTA. Will obtain a Noncon head CT as well as carotid imaging. Of note, patient does have history of CVA x2 as well as MN. She is taking aspirin and has continued to take this recently. Contacted by the radiologist who advises no acute abnormality in the carotid ul trasound or CT head. Does have some mild atherosclerosis but 50% or less, no significant stenosis. Discussed with the patient. Labs are largely unremarkable, repeat troponin and urinalysis are pending. Evaluated the patient. We will set her up, she did this initially listed to the right and felt off. However, she did not feel that this is completely vertiginous. I am hesitant to have her ambulate because she is already having difficulty with balance. Cranial nerves are intact. She does not have any focal deficits. However, I do remain concerned for potential posterior stroke given the change in her balance. I was not able to elicit symptoms with routinely so performing hints exam was very limited. Patient I discussed that I would do remain concerned for potential posterior stroke and she would like to be able to be discharged home. She reports that she lives very close to the local emergency department and is able to return if this is warranted. Has been over 24 hours since the onset of her symptoms. Patient would require MR and we did discuss that ideally she would be admitted to have this completed and she would prefer to be able to go home. Repeat troponin tesha ins less than Cutoff, well within normal limits. Urinalysis however is concerning for leukocyte Estrace as well as bacteria. This could potentially account for some of her symptoms and we will begin treatment with antibiotics. Will use ciprofloxacin. QT was within normal limits. Did adjustment for her kidney function. I did encourage hydration. Patient I discussed that while this may be contributing to this, I still remain concerned for potential posterior stroke, particularly given her history. I encouraged that she continue with her medication and follow-up promptly with her primary care as she is not wanting to stay to be admitted. Strict return precautions were discussed. She does have good social support and is able to seek care emergently if needed. All of her questions and concerns were addressed and she is in agreement this plan. We discussed fall risk strategies, she does have a walker at home and will use this to help with ambulation. Prior to discharge, patient was able to ambulate to the restroom unassisted. HPI <Kimberly Lay NP - Last Filed: 03/25/22 16:13> General Mode of arrival: wheelchair . Date/Time Provider Initiated Documentation: 03/25/22 14:01 . Limitations to Documentation: no limitations . Information obtained by: patient, RN notes reviewed and old records reviewed . HPI Narrative: 71-year-old female with a past medical history of COPD, hypertension, high cholesterol, conversion disorder, eustachian tube disorder, CVA, renal insufficiency, congenital absent kidney, restless leg syndrome, coronary artery disease, anxiety depression presents to the ER with a chief complaint of dizziness, and shaking-like episodes which began yesterday around 2 PM after going grocery shopping. Patient reports that she had couple episodes of just not feeling well while at the grocery store. Came home and had some uncontrollable shaking episodes. She reports that she remained awake and alert and able to talk throughout the episodes. They only last for a few seconds and then stop. She also reports couple episodes of having tunnel vision and feeling as if she is going to pass out which is also since resolved. She does have increased dizziness with head movement or position changes. She is complaining of a right-sided frontal headache left-sided TMJ pain and left ear pain which radiates down her left side of her neck. She denies any ringing or ears. No focal neurodeficits noted. No facial droop. She denies any chest pain shortness of breath. She does report some diarrhea which began today. She was seen at a different local facility prior to arrival and had some blood drawn per patient report. She did leave prior to the completion of the work-up. Related Data Home Medications Medication Instructions Recorded Confirmed aspirin 81 mg tablet,delayed 1 tab PO DAILY 04/30/14 03/25/22 release (Aishwarya Low Dose Aspirin) losartan 100 mg tablet 100 mg PO HS 04/30/14 03/25/22 nitroglycerin 0.4 mg sublingual 1 tab sublingual PRN PRN 04/30/14 03/25/22 tablet (Nitrostat) atorvastatin 80 mg tablet 80 mg PO HS 03/16/15 03/25/22 amlodipine 10 mg tablet 10 mg PO HS 07/23/19 03/25/22 umeclidinium 62.5 mcg-vilanterol 1 inh inhalation DAILY 08/14/19 03/25/22 25 mcg/actuation powdr for inhalation (Anoro Ellipta) duloxetine 30 mg capsule,delayed 30 mg PO HS 03/23/20 03/25/22 release acetaminophen 500 mg capsule 1,000 mg PO Q8H PRN PRN #90 caps 04/29/20 03/25/22 ibuprofen 600 mg tablet 600 mg PO TID PRN pain #30 tabs 04/29/20 03/25/22 torsemide 10 mg tablet 10 mg PO DAILY 07/02/21 03/25/22 trazodone 100 mg tablet 100 mg PO QHS PRN 07/02/21 03/25/22 ciprofloxacin HCl 500 mg tablet 500 mg PO Q12H #5 tabs 03/25/22 Previous Rx's Medication Instructions Recorded acetaminophen 500 mg capsule 1,000 mg PO Q8H PRN PRN #90 caps 04/29/20 ibuprofen 600 mg tablet 600 mg PO TID PRN pain #30 tabs 04/29/20 ciprofloxacin HCl 500 mg tablet 500 mg PO Q12H #5 tabs 03/25/22 Allergies Allergy/AdvReac Type Severity Reaction Status Date / Time oxycodone [From Percocet] AdvReac Intermediate n/v Verified 03/25/22 14:01 prochlorperazine edisylate AdvReac Intermediate has Unverified 03/25/22 14:01 [From Compazine] extreme energy prochlorperazine maleate AdvReac Intermediate has Unverified 03/25/22 14:01 [From Compazine] extreme energy atenolol AdvReac Mild Pt unsure Verified 03/25/22 14:01 of reaction hydrochlorothiazide AdvReac Mild Pt unsure Verified 03/25/22 14:01 of reaction hydrocodone [From Vicodin] AdvReac Mild n/v Verified 03/25/22 14:01 lisinopril AdvReac Mild cough Verified 03/25/22 14:01 General Stated Complaint: Dizzy/Sync GWYN: 2 Review of Systems <Kimberly Lay NP - Last Filed: 03/25/22 16:13> All systems reviewed & are unremarkable except as noted in HPI and below Constitutional Constitutional: Denies chills, Denies fever(s) and Reports headache(s) Eyes Eyes: Reports other visual disturbances and Reports tunnel vision ENT Ears, Nose, Mouth, and Throat: Reports vertigo, Reports dizziness, Reports otalgia (Left), Reports headache(s) and Reports disequilibrium Comments: Left TMJ pain Cardiovascular Cardiovascular: Denies chest pain, Denies pedal edema, Denies leg edema and Denies dyspnea Respiratory Respiratory: Denies dyspnea Gastrointestinal Gastrointestinal: Denies abdominal pain, Denies hematochezia, Reports diarrhea, Reports nausea and Denies vomiting Neurologic Neurologic: Reports as per HPI, Reports vertigo, Reports dizziness, Reports headache(s), Reports other visual disturbances, Reports convulsions, Reports tremor(s) and Reports disequilibrium PFSH <Kimberly Lay NP - Last Filed: 03/25/22 16:13> All Active Problems (Updated 03/25/22 @ 18:11 by PIPPA Vargas) Acute UTI (Acute) Balance problem (Acute) Trochanteric bursitis of left hip (Acute) DEPO MEDROL 09/30/21 Cubital tunnel syndrome on right (Acute) s/p decompression with transposition: 04/29/2020 Cubital tunnel syndrome on left (Acute) S/P Transposition: 04/01/2020 Fracture of greater trochanter of left femur (Acute) History of total left hip replacement (Acute 08/19/19) Deviated nasal septum (Acute) 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 History of depression and suicide attempt. Coronary arteriosclerosis CVA (cerebral vascular accident) 13 years ago shortly after her LEFT TKA reported second stroke noted by her neurologist ~6 years ago Eustachian tube disorder Fecal incontinence Gastroparesis Helicobacter pylori gastritis Fall 2019 History of chest pain Suspected MN 2005 Hypercholesteremia Hypertension IBS (irritable bowel syndrome) Lesion of eyelid left upper eyelid Migraine history og migraines Neuropathy Obesity ELVIN on CPAP Pt. 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 she will cough a lot Osteoarthritis Raynauds disease Reactive airway disease Renal insufficiency RLS (restless legs syndrome) Senile hyperkeratosis Stress incontinence Stroke 2007, left sided weakness-resolved no deficits Varicose veins of both lower extremities Surgical History History of appendectomy History of carpal tunnel release History of cholecystectomy History of hysterectomy History of knee replacement bilateral Left ear injury had surgery to help with ear drum from injury Status post left foot surgery Shortened fourth metatarsal Family History Other Cancer Diabetes Glaucoma Heart disease Hypertension Social History Smoking/Tobacco Use Status: Current every day Tobacco Type: cigarettes Tobacco: How many years used: 51 Quit status: not considering quitting Counseling given: counseling >3 minutes Smoking risk assessment performed?: Yes Alcohol Intake: former Drug use: Never Substance use type: does not use Household members: spouse Housing: house Number of Children: 2 number of grandchildren: 16 current occupation: retired Pets and animals: Yes Pets and animals: dog(s) Current gender identity: female What is your relationship status?: Panel score (0-1 are the most socially isolated patients): 1 What type of physical activity do you participate in: none Seatbelt use: always Do you feel safe at home: Yes Do you feel safe in your relationship?: Yes Exam <Kimberly Lay NP - Last Filed: 03/25/22 16:13> Narrative Exam Narrative: Constitutional: Alert and oriented x3. Appears stated age. Normal body habitus. Head: Normocephalic, no trauma. Eyes: Pupils PERRL, Red reflex noted, EOM's intact. Eyelids symmetrical without lesions, discharge, or swelling. ENT: Bilateral TM's bulging bilaterally external ear normal to inspection, no mastoid TTP, swelling, or erythema, Nasal turbinates WNL, no nasal discharge. Normal dentition, Posterior pharynx WNL, no exudate. Chest: RRR, Normal S1, S2, distal pulses intact. Resp: Lungs clear to auscultation bilaterally, no wheezes, rales, or rhonchi. Abdomen: Soft, non-distended, Normoactive bowel sounds all 4 quads. Nontender to palpation all 4 quadrants. Musculoskeletal: 5/5 strength to all four extremities. Skin: No suspicious rashes or lesions. Capillary refill less than 2 sec. Neurologic: Cranial nerves II-XII intact. Alert and oriented x 3. Motor: No deficits noted. Sensory: Intact bilaterally all 4 extremities. No pronator drift, intact dorsiflexion pedal flexion bilaterally lower extremities. Patient had episode lasting few seconds upon sitting up. She did remain awake and alert and complaining of dizziness with head movements. Hematologic/Lymphatic: No ecchymosis, no lymphadenopathy. Course <Kimberly Lay NP - Last Filed: 03/25/22 16:13> Vital Signs Vital signs: Vital Signs Temperature 36.7 C 03/25/22 13:58 Pulse 71 03/25/22 13:58 Respiratory Rate 18 03/25/22 13:58 Blood Pressure 129/67 03/25/22 13:58 Pulse Oximetry 97 03/25/22 13:58 Temperature 36.7 C 03/25/22 13:58 Temperature Source Temporal Artery Scan 03/25/22 13:58 Pulse 71 03/25/22 13:58 Respiratory Rate 16 03/25/22 14:15 Respiratory Effort Normal, Non-Labored 03/25/22 14:15 Respiratory Depth Normal 03/25/22 14:15 Respiratory Pattern Normal 03/25/22 14:15 Blood Pressure 129/67 03/25/22 13:58 Pulse Oximetry 97 03/25/22 13:58 Oxygen Delivery Method Room Air 03/25/22 13:58 Oxygen Flow Rate 0 03/25/22 13:58 Lab/Test Results Lab/Test Results: Laboratory Tests Range/Units 03/25/22 14:25 WBC (4.4-10.8) 10^3/uL 5.55 RBC (3.93-5.22) 10^6/uL 3.85 L Hgb (11.2-15.7) g/dL 13.3 Hct (36.0-46.0) % 38.6 MCV (80-95) fL 100 H MCH (27.0-33.0) pg 34.5 H MCHC (32.0-36.0) % 34.5 RDW (11.7-14.6) % 12.7 Plt Count (130-400) 10^3/uL 215 MPV (8.0-11.0) fL 9.1 Immature Gran % 0.4 Neutrophils % 59.2 Lymphocytes % 28.1 Monocytes % 10.5 Eosinophils % 1.1 Basophils % 0.7 Nucleated RBC % (0.0-0.3) % 0.0 Absolute Neutrophils (1.2-6.7) 10^3/uL 3.29 Absolute Lymphocytes (1.2-3.4) 10^3/uL 1.56 Absolute Monocytes (0.1-0.8) 10^3/uL 0.58 Absolute Eosinophils (0.0-0.7) 10^3/uL 0.06 Absolute Basophils (0.0-0.2) 10^3/uL 0.04 Sign Out <Kimberly Lay NP - Last Filed: 03/25/22 16:13> Sign Out Data: Sign Out Comment: Pending CT head and carotid ultrasounds, meclizine 25 mg p.o. ordered. Here with dizzy spells and uncontrollable shaking, she does not lose consciousness. Has a history of CVA, MN takes 81 mg aspirin daily. Last updated by Kimberly Lay NP at 03/25/22 15:56
[2022-03-25 15:05] LABS: ALT 12 U/L (14-59); AST 9 U/L (15-37); Albumin 3.8 g/dL (3.4-5.0); Alkaline Phosphatase 68 U/L (46-116); BUN 22 mg/dL (7-18); Bilirubin, Total 0.4 mg/dL (0.2-1.0); CREATININE 1.9 mg/dL (0.55-1.02); Calcium 9.1 mg/dL (8.5-10.1); Chloride 108 mmol/L (98-107); Estimated GFR 27.88 (mL/min/1.73m2); Glucose 118 mg/dL (74-106); Magnesium 2.2 mg/dL (1.8-2.4); NT-proBNP 167 pg/mL (<300); Potassium 3.8 mmol/L (3.5-5.1); Sodium 144 mmol/L (136-145); Total Protein 6.3 g/dL (6.4-8.2); Troponin I < 50 ng/L (<or=60)
--- NOTE | 2022-03-25 15:15 | DI.US_ITS ---
Exam(s) US CAROTID EXAM: US CAROTID CLINICAL HISTORY: Left neck pain, YANEZ, Dizziness. TECHNIQUE: Ultrasound carotids performed using grayscale, color-flow, and spectral Doppler imaging. COMPARISON: No exams were available for comparison FINDINGS: RIGHT CAROTID ARTERY: Plaque: There is calcific plaque seen in the carotid bulb and proximal internal carotid artery. Velocity elevation: None. LEFT CAROTID ARTERY: Plaque: Calcific plaque is seen in the carotid bulb in the proximal internal carotid artery. Velocity elevation: None. VERTEBRAL ARTERIES: Antegrade flow. Measurements: R Bulb: 58.9cm/s PS / 18.5cm/s ED R CCA: 72cm/s PS / 14.1cm/s ED R ECA: 106cm/s PS / 14.2cm/s ED R ICA Prox: 90.1cm/s PS / 21cm/s ED R ICA Mid: 88.6cm/s PS / 19.7cm/s ED R ICA Distal: 49.6cm/s PS /18.5cm/s ED R Vert: 76.6cm/s PS / 17.5cm/s ED R SVR: 1.2 R DVR: 1.2 L Bulb: 109.3cm/s PS / 19.6cm/s ED L CCA: 77cm/s PS / 21.63cm/s ED L ECA: 104cm/s PS / 13.6cm/s ED L ICA Prox: 139.9cm/s PS / 37.2cm/s ED L ICA Mid: 132.7cm/s PS / 39cm/s ED L ICA Distal: 137.8cm/s PS / 38.8cm/s ED L Vert: 103.1cm/s PS / 24.3cm/s ED L SVR: 1.8 L DVR: 2 IMPRESSION: 1. No hemodynamically significant carotid stenosis on the right. 2. 50-69 percent left ICA internal carotid artery stenosis. 3. Bilateral atherosclerosis. 4. Findings were discussed with the emergency department at 4:28 p.m. on 03/25/2022. Criteria for Carotid Stenosis: Normal: ICA PSV <125 cm/s no plaque or intimal thickening is visible. <50% stenosis: ICA PSV <125 cm/s and plaque or intimal thickening is visible. 50-69% stenosis: ICA PSV is 125-250 cm/s and plaque is visible. >70% stenosis to near occlusion: ICA PSV >250 cm/s with visible plaque and luminal narrowing. DATA REPOSITORY:
--- NOTE | 2022-03-25 15:15 | DI.CT_ITS ---
Exam(s) CT HEAD WO EXAM: CT HEAD WO CLINICAL HISTORY: Headache, Dizziness. TECHNIQUE: Imaging Protocol: Axial computed tomography images with coronal and sagittal reformatted images were created and reviewed COMPARISON: No exams were available for comparison FINDINGS: Ventricles and Extra axial spaces: Normal in size and morphology for the patient's age. Hemorrhage: None. Cerebral parenchyma: There is an area of encephalomalacia involving the junction of the right frontal and right middle lobes. No evidence of an acute territorial infarct is seen. There are areas of de creased attenuation in the white matter consistent with small vessel ischemic disease. Midline shift: None. Brainstem/Cerebellum: Normal. Calvarium: Normal. Visualized Paranasal sinuses/Mastoids: Clear. Soft Tissues: Unremarkable. IMPRESSION: 1. No acute intracranial process. 2. Findings were discussed with Dr. Salcedo at 4:50 p.m. on 03/25/2022. RADIATION DOSE DELIVERED: 890.68mGy.cm Total DLP DATA REPOSITORY: All CT scans at this facility are submitted to the National Radiology Data Registry (NRDR) Dose Index Registry (DIR) with the [employer] ([employer]). RADIATION OPTIMIZATION: All CT scans at this facility use at least one of these dose optimization te chniques: automated exposure control; mA and/or kV adjustment per patient size (includes targeted exa ms where dose is matched to clinical indication); or iterative reconstruction.
[2022-03-25] MEDS: Meclizine 25 MG TAB PO (16:31)
[2022-03-25 17:36] LABS: Troponin I < 50 ng/L (<or=60)
[2022-03-25 17:40] LABS: Bilirubin Negative (Negative); Blood Negative (Negative); Clarity Sl Cloudy (Clear); Glucose Negative (Negative); Ketones Negative (Negative); Leukocyte Esterase Small (Negative); Nitrite Negative (Negative); Specific Gravity 1.025 (1.005-1.025); Urobilinogen 0.2 EU/dL (Up TO 0.2); pH 5.5 (5-8)
[2022-03-25 17:47] LABS: Bacteria Moderate HPF (Negative); C & S Indicated? Yes; Casts Negative LPF (Negative); Crystals Negative HPF (Negative); Epithelial Cells Few HPF (Negative); Mucus Negative (Negative); RBC 0-2 HPF (0-2)
[2022-03-25] MEDS: Ciprofloxacin 500 MG TAB PO (18:22)
== END 2022-03-25 18:40 | disposition home or self-care (01) ==
PROVIDERS: Registered Nurse Emergency; Emergency Provider Physician Assistant; PCP Internal Medicine
DX: N39.0 Urinary tract infection, site not specified (principal); R26.89 Other abnormalities of gait and mobility; R51.9 Headache, unspecified; J45.909 Unspecified asthma, uncomplicated; H92.02 Otalgia, left ear; I10 Essential (primary) hypertension; J44.9 Chronic obstructive pulmonary disease, unspecified; I25.10 Atherosclerotic heart disease of native coronary artery without angina pectoris; Z86.73 Personal history of transient ischemic attack (TIA), and cerebral infarction without residual deficits; Z79.82 Long term (current) use of aspirin
CPT/HCPCS: 36415; 80053; 93005; 99284; 70450; 81003; 81015; 83735; 83880; 84484; 85025; 87086; 93010; 93880; 99285

== ENCOUNTER 2022-06-20 11:41 | Outpatient (CLI) | payer MEDICARE, SELFPAY ==
--- NOTE | 2022-06-20 11:00 | DI.RAD_ITS ---
Exam(s) XR KNEE LT 2V AP,LAT EXAM: XR KNEE LT 2V AP,LAT INDICATION: f/u painful L TKA. COMPARISON: No exams were available for comparison TECHNIQUE: 2D digital imaging was performed. Two views. FINDINGS: There is a total knee prosthesis in place. The alignment appears satisfactory. There are no small a bnormal surrounding bony lucencies. There is a small joint effusion. Vascular calcifications are no karlee. The bones appear osteopenic. Impression: Unremarkable knee prosthesis. DATA REPOSITORY: RADIATION DOSE DELIVERED:
--- NOTE | 2022-06-20 11:00 | DI.RAD_ITS ---
Exam(s) XR HIP LT AP LAT ONLY EXAM: XR HIP LT AP LAT ONLY INDICATION: eval L CRIS, greater troch frx. COMPARISON: CR XR HIP LT COMPLETE AP PELVIS from 07/01/2019 CR XR PELVIS AP from 08/19/2019 CR XR HIP LT IN OR from 08/19/2019 CR XR HIP LT AP LAT ONLY from 07/02/2021 TECHNIQUE: 2D digital imaging was performed. Two views. FINDINGS: There has been no change in the total left hip prosthesis. There are no surrounding bony lucencies. Large greater trochanteric fragment again noted. DATA REPOSITORY: RADIATION DOSE DELIVERED:
== END 2022-06-20 11:42 | disposition home or self-care (01) ==
LOC: DIORS 11:42
PROVIDERS: PCP Internal Medicine; Referring Provider Internal Medicine; Visit Provider Student in an Organized Health Care Education/Training Program
DX: S72.112A Displaced fracture of greater trochanter of left femur, initial encounter for closed fracture (principal); T84.84XA Pain due to internal orthopedic prosthetic devices, implants and grafts, initial encounter; Z96.652 Presence of left artificial knee joint
CPT/HCPCS: 20610; 73502; 73560; J1040

== ENCOUNTER 2022-07-14 03:36 | Outpatient (CLI) | payer MEDICARE, SELFPAY ==
--- NOTE | 2022-07-14 08:58 | DI.RAD_ITS ---
Exam(s) RF JOINT INJECTION FLUORO GUID EXAM: RF JOINT INJECTION FLUORO GUID CLINICAL HISTORY: R HIP PAIN, FLUORO GUIDED INJ, M25.551 TECHNIQUE: Fluoroscopy provided. Radiologist not present. CONTRAST MATERIAL: None COMPARISON: No exams were available for comparison FINDINGS: Fluoroscopy was provided for right hip injection Please refer to the procedure report for complete details. Cumulative Dose: magdalena Mendoza=0.080 mGy IMPRESSION: RADIATION DOSE DELIVERED:
[2022-07-14] MEDS: Bupivacaine 0.5% Pres-Free 10 ML VIAL 5 ML IJ (15:25)
[2022-07-14] MEDS: methylPREDNISolone ACETATE 80 MG/ML VIAL IM (15:25)
[2022-07-14] MEDS: Omnipaque 300 MG/ML 10 ML BTL IJ (15:26)
--- NOTE | 2022-07-14 15:41 | W.PROCNOTE ---
Date of service: 07/14/22 Time of Service: 15:30 Procedure Note Date of procedure: 07/14/22 Procedure: Right Hip Injection with Fluoroscopic Guidance Surgeon/Proceduralist/Physician: Dionisio Limon Procedure Diagnosis: Right Hip Osteoarthritis Procedure Indications: Cailin has had persistent pain of the RIGHT hip and groin. Noninvasive measures have been tried. To serve as both diagnostic and therapeutic, an injection under fluoroscopy was recommended. I had discussed the risks of the procedure and the patient elected to proceed. Procedure Description: Cailin was greeted in the flouroscopy room. The correct side was identified and the consent was reviewed with the patient and signed. The patient was then placed in the supine position on the fluoroscopy table. The RIGHT hip was then prepped with Chloraprep. The anterolateral injection starting point was identiifed by bony landmarks and fluoroscopy. The skin and soft tissue in the tract of the injection was anesthetized with 1% Lidocaine. A spinal needle was then inserted deep into the hip joint at the level of the lateral femoral neck under fluoroscopic guidance. A small amount of Omnipaque solution was injected to confirm intraarticular placement. Once confirmed, the hip was injected with 5cc of 0.5% Bupivicaine and 80mg of Depo-Medrol. A bandaid was placed on the injection site. The patient tolerated the procedure well.
== END 2022-07-14 03:56 ==
LOC: DI 03:38
PROVIDERS: PCP Internal Medicine; Visit Provider Student in an Organized Health Care Education/Training Program
DX: M25.551 Pain in right hip (principal)
CPT/HCPCS: 20610; 77002; J1040

== ENCOUNTER 2022-07-14 14:32 | Outpatient (REF) | payer MEDICARE, SELFPAY ==
[2022-07-14 15:25] LABS: Anion Gap 7.4 mmol/L (3-11); BUN 23 mg/dL (7-18); CO2 30.6 mmol/L (21.0-32.0); CREATININE 1.8 mg/dL (0.55-1.02); Calcium 9.1 mg/dL (8.5-10.1); Chloride 104 mmol/L (98-107); Estimated GFR 29.75 (mL/min/1.73m2); Glucose 108 mg/dL (74-106); Potassium 3.5 mmol/L (3.5-5.1); Sodium 142 mmol/L (136-145)
== END 2022-07-14 14:33 | disposition home or self-care (01) ==
LOC: NCHCN 14:32
PROVIDERS: PCP Internal Medicine; Visit Provider Internal Medicine
DX: F41.8 Other specified anxiety disorders (principal); J44.9 Chronic obstructive pulmonary disease, unspecified; F17.210 Nicotine dependence, cigarettes, uncomplicated
CPT/HCPCS: 80048

== ENCOUNTER 2022-07-21 13:27 | Outpatient (REF) | payer MEDICARE, SELFPAY ==
[2022-07-21 16:06] LABS: BUN 21 mg/dL (7-18); CREATININE 1.6 mg/dL (0.55-1.02); Chloride 104 mmol/L (98-107); Estimated GFR 34.27 (mL/min/1.73m2); Glucose 117 mg/dL (74-106); Potassium 3.5 mmol/L (3.5-5.1); Sodium 142 mmol/L (136-145)
== END 2022-07-21 13:28 | disposition home or self-care (01) ==
LOC: NCHCN 13:27
PROVIDERS: PCP Internal Medicine; Visit Provider Internal Medicine
DX: N18.9 Chronic kidney disease, unspecified (principal); I25.10 Atherosclerotic heart disease of native coronary artery without angina pectoris; J44.9 Chronic obstructive pulmonary disease, unspecified; E66.9 Obesity, unspecified
CPT/HCPCS: 80048

== ENCOUNTER → 2022-10-26 01:37 | Outpatient (CLI) | payer MEDICARE, SELFPAY ==
--- NOTE | 2022-10-26 | DI.CTLCSR_ITS ---
Exam(s) CT CHEST LUNG CANCER SCREEN EXAM: CT CHEST LUNG CANCER SCREEN CLINICAL HISTORY: SCREENING FOR LUNG CA, CURRENT SMOKER, F17.210 TECHNIQUE: Imaging Protocol: Axial computed tomography images with coronal and sagittal reformatted images were created and reviewed. Low dose screening protocol. COMPARISON: CT CT CHEST LUNG CANCER SCREEN from 09/22/2021 FINDINGS: Exam limited by respiratory motion at the lung bases. Tracheobronchial tree: No bronchiectasis or mucus plugging.. Mediastinum and Luna: No dominant adenopathy or fluid collection. Pulmonary parenchyma: No consolidation or dominant measurable mass. Mild emphysematous changes. Lung Nodules: Scattered tiny nodules, less than 3 millimeters bilaterally. No suspicious nodules. Pleura: No effusion. No pneumothorax. Heart: The heart is not dilated. [id number]-[id number]-[id number] coronary artery calcifications are seen. Aorta: Thoracic aorta non-dilated. Mild atherosclerotic changes. Upper abdomen: Unremarkable. Bones: Stable mild T4 compression fracture. Old right rib fracture. Soft Tissues: Unremarkable. IMPRESSION: No suspicious pulmonary nodules. Lung RADS Cat 2 - Benign Appearance / Behavior: Nodules with a very low likelihood of becoming a clin ically active cancer due to size or lack of growth Lung-RADS 1.0 CATEGORIES: Category 0 - Prior chest CT exam(s) being located for comparison. Category 1 - Annual screening in 12 months. No nodules or definitely benign nodules. Category 2 - Annual screening in 12 months. Benign appearance. Nodules with low likelihood of becomin g active cancer. Category 3 - 6-month follow-up. Probably benign. Short-term follow-up suggested. Nodules with low lik elihood of becoming active cancer. Category 4A - 3-month follow-up and CT/PET if >8 mm in size. Suspicious finding. Findings which requi re additional testing. Category 4B - Findings which require additional testing and tissue sampling. Category 4X - Category 3 or 4 nodules with additional features or imaging findings that increases the suspicion of malignancy. Modifier S- Potentially clinically significant findings (non lung cancer) RADIATION DOSE DELIVERED: 68.71mGy.cm Total DLP DATA REPOSITORY: All CT scans at this facility are submitted to the National Radiology Data Registry (NRDR) Dose Index Registry (DIR) with the [employer] ([employer]). RADIATION OPTIMIZATION: All CT scans at this facility use at least one of these dose optimization te chniques: automated exposure control; mA and/or kV adjustment per patient size (includes targeted exa ms where dose is matched to clinical indication); or iterative reconstruction.
== END ==
PROVIDERS: PCP Internal Medicine; Visit Provider Internal Medicine
DX: F17.210 Nicotine dependence, cigarettes, uncomplicated (principal); Z12.2 Encounter for screening for malignant neoplasm of respiratory organs
CPT/HCPCS: 71271

== ENCOUNTER → 2022-12-22 14:16 | Outpatient (BNVA) | payer MEDICARE, SELFPAY | PROVIDERS: PCP Internal Medicine; Referring Provider Internal Medicine; Visit Provider Student in an Organized Health Care Education/Training Program | DX: M70.62 Trochanteric bursitis, left hip (principal); Z96.642 Presence of left artificial hip joint | CPT/HCPCS: 20610; J1040 ==

== ENCOUNTER → 2023-05-04 13:24 | Outpatient (BNVA) | payer MEDICARE, SELFPAY | PROVIDERS: PCP Internal Medicine; Referring Provider Internal Medicine; Visit Provider Student in an Organized Health Care Education/Training Program | DX: S72.112K Displaced fracture of greater trochanter of left femur, subsequent encounter for closed fracture with nonunion (principal); M97.02XD Periprosthetic fracture around internal prosthetic left hip joint, subsequent encounter; X58.XXXD Exposure to other specified factors, subsequent encounter; T84.84XA Pain due to internal orthopedic prosthetic devices, implants and grafts, initial encounter; Z96.652 Presence of left artificial knee joint; M70.62 Trochanteric bursitis, left hip; F17.210 Nicotine dependence, cigarettes, uncomplicated | CPT/HCPCS: 99215 ==

== ENCOUNTER → 2023-05-18 03:35 | Outpatient (CLI) | payer MEDICARE, SELFPAY ==
--- NOTE | 2023-05-18 08:30 | DI.CT_ITS ---
Exam(s) CT LOWER EXTREMITY LT WO EXAM: CT LOWER EXTREMITY LT WO CLINICAL HISTORY: PAIN, SURGICAL PLANNING,periprosthetic fx around prosthesis,M97.02xd. TECHNIQUE: Imaging Protocol: Axial computed tomography images with coronal and sagittal reformatted images were created and reviewed. CONTRAST MATERIAL: Intravenous: Omnipaque 350 Contrast volume:structured data in ml Contrast route:IV - COMPARISON: CR XR HIP LT AP LAT ONLY from 06/20/2022 FINDINGS: Bones: A left hip prosthesis is in place. No abnormal surrounding lucencies. There is no evidence o f fracture or dislocation. Nonunited greater trochanter bone fragment again noted, unchanged from prior. No cellulitic or osteomyelitic changes are identified. No lytic or sclerotic lesions are identified. Soft Tissues: No acute findings. IMPRESSION: No evidence of periprosthetic fracture. RADIATION DOSE DELIVERED: Total DLP DATA REPOSITORY: All CT scans at this facility are submitted to the National Radiology Data Registry (NRDR) Dose Index Registry (DIR) with the [employer] ([employer]). RADIATION OPTIMIZATION: All CT scans at this facility use at least one of these dose optimization te chniques: automated exposure control; mA and/or kV adjustment per patient size (includes targeted exa ms where dose is matched to clinical indication); or iterative reconstruction.
== END ==
PROVIDERS: PCP Family Medicine; Visit Provider Student in an Organized Health Care Education/Training Program
DX: M97.02XD Periprosthetic fracture around internal prosthetic left hip joint, subsequent encounter (principal); M25.552 Pain in left hip; Z96.642 Presence of left artificial hip joint
CPT/HCPCS: 73700

== ENCOUNTER 2024-10-24 02:50 | Outpatient (CLI) | payer MEDICARE, SELFPAY ==
--- NOTE | 2024-10-24 | DI.NM_ITS ---
APPROVED REPORT Exam: Pharmacologic Patient Location: Out-Patient Room/Bed: Stress Nurse: Almita Sweet RN Ordering Provider:TRACI SUDHAKARKATIA, Contact Number: [phone] BMI: 27.97 Baseline Rhythm: Atrial Fibrillation Comment: Occasional PVC's Indications: Chest pain Medical History Medical History: Depression, nicotine dependence, gastroparesis, CKD, insomnia, reactive airway disease, seizure, bilateral lower limb edema, raynauds disease, CAD, DVT, neuopathy, uterine cancer, chronic back pain, afib, RLS, anxiety, cerebral infarction (2007), conversion disorder, congenital absent kidney, HTN, HLD, migraines, NSTEMI (2017), ELVIN (uses CPAP), renal insufficiency, obesity Cardiac Medications: Losartan, ondansetron, duloxetine, atorvastatin, eliquis, buprenorphine patch, oxycodone, nitro, albuterol sulfate, tramadol, citalopram, aspirin, anoro ellipta, trazodone, toresemide, amlodipine, mirtazapine, fosomax, metoprolol succinate, donepezil, amitriptyline, duloxetine Allergies: Hydrocodone, lisinopril, hydrochlorothiazide, atenolol, atorvastatin, prochloperazine, compazine, oxycodone, percocet, vicodin, compazine Cardiac Risk Factors: Family hx, HTN, COPD, current smoker, obesity Pretest Chest Pain Characteristics: None Exercise History: Sedentary Physical Disabilities: Back pain (arrived in wheelchair) Lung Sounds: Coarse crackles left lower lobe Heart Sounds: Irregular Stress Test Details Test: Pharmacologic stress testing performed using 0.4 mg of regadenoson per 5 mL given IV over 10 seconds. Reason for pharmacologic stress test: physical limitation. Nuclear Acquisition: Rest Tc-99m/Stress Tc-99m 1 day Rest Isotope: Tc-99m Sestamibi. Dose: 10.1 Date: 10/24/2024 Injection Time: 1045 Stress Isotope: Tc-99m Sestamibi. Dose: 32.0 Date: 10/24/2024 Injection Time: 32.0 HR Resting HR Supine: 89 bpm Max Heart Rate (APMHR): 147 bpm Target HR (85% APMHR): 125 bpm Max HR Achieved: 140 bpm % of APMHR: 95 Recovery HR: 110 bpm BP Resting BP Supine: 140/78 mmHg Max BP: 160/86 mmHg Recovery BP: 130/80 mmHg ECG Resting ECG: Atrial Fibrillation Ectopy: Occasional PVC's Stress ECG: Atrial Fibrillation ST Change: No significant ST segment changes noted Arrhythmia: Occasional PVC's Recovery ECG: Atrial Fibrillation Recovery ST Change: No significant ST segment changes noted Clinical Stress Symptoms: None Angina Score: None Rate Pressure Product: 19394 Stress ECG Conclusion 1. Resting electrocardiogram showed atrial fibrillation, low voltage, possible old anterior infarct 2. Patient underwent testing using pharmacologic stress with regadenoson 3. Peak heart rate achieved was 95% of maximal predicted heart rate for age. There was no electrocardiographic evidence of myocardial ischemia 4. See MPI report Stress Test Summary STAGE HR BP SpO2 Symptoms NOTES Supine 89 140/87 93% 1 min post Lexiscan injection 96 150/82 95% 3 min post Lexiscan injection 100 160/86 95% 6 min post Lexiscan injection 100 130/80 93% Patient arrived in wheelchair. Unable to use treadmill r/t back pain/ patient report of compression fractures. Patient surpassed 85% target HR after nubia injection while supine. Patient denied any symptoms during test. Patient able to stand/pivot to wheelchair to proceed to imaging. Patient proceeded to imaging via wheelchair in no apparent distress. MPI Conclusion Myocardial perfusion is normal. There is no ischemia or evidence of prior infarction Overall ejection fraction appears mildly reduced without segmental wall motion abnormalities
[2024-10-24] MEDS: Regadenoson 0.4 MG/5 ML SYR IVP (12:57)
== END 2024-10-24 03:10 ==
LOC: DI 02:51
PROVIDERS: PCP Family Medicine; Visit Provider Internal Medicine Cardiovascular Disease
DX: R07.9 Chest pain, unspecified (principal)
CPT/HCPCS: 78452; 93016; 93018; 93017; J2785